=== PATIENT | female | born 1955 | race Caucasian/White ===

== ENCOUNTER 2024-06-28 12:55 | Emergency (ER) | payer OTHER ==
[~2024-06-28] VITALS: Ht 167.6 cm; Wt 81.7 kg
[2024-06-28 14:20] LABS: BASOPHILS ABSOLUTE AUTO 0.06 K/mm3 (0.00-0.23); BASOPHILS PERCENT AUTO 1 % (0-2); EOSINOPHILS ABSOLUTE AUTO 0.06 K/mm3 (0.00-0.68); EOSINOPHILS PERCENT AUTO 1 % (0-6); Hematocrit 31.3 % (33.0-51.0); Hemoglobin 9.2 g/dL (11.5-16.0); IMMATURE GRAN ABSOLUTE AUTO 0.01 K/mm3 (0.00-0.10); IMMATURE GRAN PERCENT AUTO 0 % (0-1); LYMPHOCYTES ABSOLUTE AUTO 0.69 K/mm3 (0.84-5.20); LYMPHOCYTES PERCENT AUTO 9 % (21-46); MONOCYTES ABSOLUTE AUTO 0.43 K/mm3 (0.16-1.47); MONOCYTES PERCENT AUTO 6 % (4-13); Mean Corpuscular HGB 23.7 pg (26.0-34.0); Mean Corpuscular HGB Conc 29.4 g/dL (31.5-36.5); Mean Corpuscular Volume 81 fL (80-100); Mean Platelet Volume 11.6 fL (9.1-12.4); NEUTROPHILS ABSOLUTE AUTO 6.23 K/mm3 (1.96-9.15); NEUTROPHILS PERCENT AUTO 83 % (41-73); Platelet Count 164 K/mm3 (150-400); RDW Coefficient Variation 15.6 % (11.7-14.2); RDW Standard Deviation 45.4 fL (35.1-46.3); Red Blood Cell Count 3.89 M/mm3 (3.80-5.20); White Blood Cell Count 7.48 K/mm3 (4.00-11.30)
[2024-06-28 14:22] LABS: Albumin, Blood 3.1 g/dL (3.4-5.0); Albumin/Globulin Ratio 0.9 (0.8-1.8); Bilirubin, Total 0.6 mg/dL (0.1-1.0); Bun/Creatinine Ratio 19.4 (12.0-20.0); Calcium, Blood 9.3 mg/dL (8.5-10.1); Creatinine, Blood 1.34 mg/dL (0.40-1.00); Globulin, Blood 3.3 g/dL (2.2-4.0); Potassium, Blood 3.8 mmol/L (3.5-5.5); Total Protein, Blood 6.4 g/dL (6.4-8.2)
[2024-06-28] MEDS ORDERED: OxyCODONE HCL 5 MG TAB PO ONE (16:10)
[2024-06-28] MEDS ORDERED: Ondansetron 4 MG SoluTab SL ONE (16:35)
[2024-06-28] MEDS ORDERED: OXYC5 PO (16:36)
[2024-06-28] MEDS ORDERED: ONDA4ODT MM (16:36)
== END 2024-06-28 17:02 | disposition home or self-care (01) ==
LOC: ER 12:55
PROVIDERS: Physician Assistant
DX: K80.70 Calculus of gallbladder and bile duct without cholecystitis without obstruction (principal); J44.89 Other specified chronic obstructive pulmonary disease; K21.9 Gastro-esophageal reflux disease without esophagitis; E78.5 Hyperlipidemia, unspecified; Z87.891 Personal history of nicotine dependence; Z88.0 Allergy status to penicillin; Z88.5 Allergy status to narcotic agent; Z88.1 Allergy status to other antibiotic agents; Z88.8 Allergy status to other drugs, medicaments and biological substances
CPT/HCPCS: 76705; 80053; 83690; 85025; A9270

== ENCOUNTER 2024-06-30 02:25 | Inpatient (IN) | payer MEDICARE, OTHER ==
[~2024-06-30] VITALS: Ht 167.6 cm; Wt 81.2 kg
[~2024-06-30 02:25] MED LIST: ONDA4ODT MM; OXYC5 PO
[2024-06-30] MEDS ORDERED: Albuterol 2.5 MG/3 ML VIAL INH SCH ×2 (02:35→05:25)
[2024-06-30] MEDS ORDERED: MethylPREDNISolone Sod Succ 125 MG Vial IV ONE (02:35)
[2024-06-30] MEDS ORDERED: Metoprolol Tartrate 1 MG/ML 5 ML VIAL IV ONE (02:40)
[2024-06-30 02:44] LABS: Bicarbonate Venous 31.6 mmol/L (24.0-30.0); PCO2 Venous 55.7 mmHg (38-42); pH Blood Venous 7.39 (7.34-7.37)
[2024-06-30 02:47] LABS: BASOPHILS ABSOLUTE AUTO 0.07 K/mm3 (0.00-0.23); BASOPHILS PERCENT AUTO 1 % (0-2); EOSINOPHILS PERCENT AUTO 0 % (0-6); Hemoglobin 9.5 g/dL (11.5-16.0); IMMATURE GRAN ABSOLUTE AUTO 0.09 K/mm3 (0.00-0.10); IMMATURE GRAN PERCENT AUTO 1 % (0-1); LYMPHOCYTES ABSOLUTE AUTO 0.43 K/mm3 (0.84-5.20); LYMPHOCYTES PERCENT AUTO 5 % (21-46); MONOCYTES ABSOLUTE AUTO 0.84 K/mm3 (0.16-1.47); MONOCYTES PERCENT AUTO 9 % (4-13); Mean Corpuscular HGB 23.9 pg (26.0-34.0); Mean Corpuscular HGB Conc 30.6 g/dL (31.5-36.5); Mean Corpuscular Volume 78 fL (80-100); NEUTROPHILS ABSOLUTE AUTO 7.92 K/mm3 (1.96-9.15); NEUTROPHILS PERCENT AUTO 85 % (41-73); NRBC ABSOLUTE 0.02 K/mm3 (0.00-0.02); NRBC Auto 0.2 /100 WBC (0.0-0.2); Platelet Count 156 K/mm3 (150-400); RDW Coefficient Variation 15.9 % (11.7-14.2); RDW Standard Deviation 45.8 fL (35.1-46.3); Red Blood Cell Count 3.97 M/mm3 (3.80-5.20); White Blood Cell Count 9.35 K/mm3 (4.00-11.30)
[2024-06-30 03:08] LABS: Albumin, Blood 3.3 g/dL (3.4-5.0); Albumin/Globulin Ratio 0.9 (0.8-1.8); Bilirubin, Total 0.9 mg/dL (0.1-1.0); Bun/Creatinine Ratio 17.3 (12.0-20.0); Calcium, Blood 8.9 mg/dL (8.5-10.1); Creatinine, Blood 1.5 mg/dL (0.40-1.00); Globulin, Blood 3.6 g/dL (2.2-4.0); Potassium, Blood 4.5 mmol/L (3.5-5.5); Total Protein, Blood 6.9 g/dL (6.4-8.2)
[2024-06-30 03:43] LABS: Influenza B, PCR NEGATIVE (NEGATIVE); Resp Syncytial Virus, PCR NEGATIVE (NEGATIVE); SARS-Cov-2 (COVID-19) PCR, MMC NEGATIVE (NEGATIVE)
[2024-06-30] MEDS ORDERED: Ondansetron 4 MG TAB PO PRN (04:10)
[2024-06-30] MEDS ORDERED: FLU VACC TS2024-25(6MOS UP)/PF 45 MCG/0.5 ML SYRINGE IM ONE (04:10)
[2024-06-30] MEDS ORDERED: IPRAT-ALBUT 0.5-3 ML INH (04:18)
[2024-06-30] MEDS ORDERED: NARCAN4 M1 (04:18)
[2024-06-30] MEDS ORDERED: NITR.4SL SL (04:18)
[2024-06-30] MEDS ORDERED: MELA3 PO (04:19)
[2024-06-30] MEDS ORDERED: MIRALAX17 GM PO (04:19)
[2024-06-30] MEDS ORDERED: CLON.5 PO (04:19)
[2024-06-30] MEDS ORDERED: GUAI200 PO (04:20)
[2024-06-30] MEDS ORDERED: BISA10S PR (04:20)
[2024-06-30] MEDS ORDERED: ACET325 PO (04:21)
[2024-06-30] MEDS ORDERED: ENTRESTO 24 MG1 EACH PO (04:21)
[2024-06-30] MEDS ORDERED: PANT40 PO (04:21)
[2024-06-30] MEDS ORDERED: ALBU90OI INH (04:21)
[2024-06-30] MEDS ORDERED: CARV25 PO (04:22)
[2024-06-30] MEDS ORDERED: TORSE20 PO (04:22)
[2024-06-30] MEDS ORDERED: ROPI.25 PO (04:22)
[2024-06-30] MEDS ORDERED: Chantix1 MG PO (04:22)
[2024-06-30] MEDS ORDERED: METF500 PO (04:23)
[2024-06-30] MEDS ORDERED: Prednisone50 MG PO (04:23)
[2024-06-30] MEDS ORDERED: BUSP10 PO (04:23)
[2024-06-30] MEDS ORDERED: ALPR.25 PO (04:24)
[2024-06-30] MEDS ORDERED: ESCI10 PO (04:24)
[2024-06-30] MEDS ORDERED: LIDO700A20 TOP (04:24)
[2024-06-30] MEDS ORDERED: ASPI81CH PO (04:24)
[2024-06-30] MEDS ORDERED: ATOR40TA PO (04:25)
[2024-06-30] MEDS ORDERED: Oseltamivir Phosphate 75 MG Cap PO SCH (04:25)
[2024-06-30] MEDS ORDERED: NOVOLIN N100 UNIT/2 SQ (04:25)
[2024-06-30 04:49] LABS: BASOPHILS ABSOLUTE AUTO 0.03 K/mm3 (0.00-0.23); BASOPHILS PERCENT AUTO 0 % (0-2); EOSINOPHILS PERCENT AUTO 0 % (0-6); Hematocrit 28.4 % (33.0-51.0); Hemoglobin 8.7 g/dL (11.5-16.0); IMMATURE GRAN ABSOLUTE AUTO 0.05 K/mm3 (0.00-0.10); IMMATURE GRAN PERCENT AUTO 1 % (0-1); LYMPHOCYTES ABSOLUTE AUTO 0.23 K/mm3 (0.84-5.20); LYMPHOCYTES PERCENT AUTO 3 % (21-46); MONOCYTES ABSOLUTE AUTO 0.33 K/mm3 (0.16-1.47); MONOCYTES PERCENT AUTO 4 % (4-13); Mean Corpuscular HGB 23.9 pg (26.0-34.0); Mean Corpuscular HGB Conc 30.6 g/dL (31.5-36.5); Mean Corpuscular Volume 78 fL (80-100); Mean Platelet Volume 11.4 fL (9.1-12.4); NEUTROPHILS ABSOLUTE AUTO 7.94 K/mm3 (1.96-9.15); NEUTROPHILS PERCENT AUTO 93 % (41-73); Platelet Count 146 K/mm3 (150-400); RDW Coefficient Variation 15.9 % (11.7-14.2); RDW Standard Deviation 45.7 fL (35.1-46.3); Red Blood Cell Count 3.64 M/mm3 (3.80-5.20); White Blood Cell Count 8.58 K/mm3 (4.00-11.30)
[2024-06-30] MEDS ORDERED: NS 1,000 ML IV SCH (05:00)
[2024-06-30] MEDS ORDERED: CefTRIAXone Sodium 1,000 MG in NS 100 ML IV SCH (05:13)
[2024-06-30] MEDS ORDERED: Azithromycin 500 MG in NS 250 ML IV ONE (05:15)
[2024-06-30 05:20] LABS: Alanine Aminotransfer (ALT/SGP 30 U/L (12-78); Albumin/Globulin Ratio 0.9 (0.8-1.8); Alk Phos 100 U/L (50-136); Anion Gap 10 mmol/L (3-11); Aspartate Aminotrans (AST/SGOT 21 U/L (12-37); Bilirubin, Total 0.7 mg/dL (0.1-1.0); Blood Urea Nitrogen 26 mg/dL (8-24); Bun/Creatinine Ratio 18.6 (12.0-20.0); CHOL/HDL RATIO 2.2; CO2, Blood 32 mmol/L (21-32); Calcium, Blood 8.1 mg/dL (8.5-10.1); Chloride, Blood 96 mmol/L (98-108); Cholesterol 98 mg/dL (50-200); Globulin, Blood 3.3 g/dL (2.2-4.0); Glomerular Filtration Rate 41 (60-); Glucose, Blood 186 mg/dL (70-99); HDL Cholesterol 45 mg/dL (>39); Low Density Lipoprotein Chol 43 mg/dL (0-110); Phosphorus, Blood 4.3 mg/dL (2.5-4.9); Potassium, Blood 3.9 mmol/L (3.5-5.5); Sodium, Blood 134 mmol/L (136-145); Thyroid Stimulating Hormone 0.661 uIU/mL (0.360-4.800); Total Protein, Blood 6.3 g/dL (6.4-8.2); Triglycerides 50 mg/dL (30-160); Very Low Density Lipoprot Chol 10 mg/dL (6-32)
[2024-06-30] MEDS ORDERED: Ipratropium/Albuterol SulF 2.5-0.5MG/3 ML Amp INH SCH (05:25)
[2024-06-30] MEDS ORDERED: Polyethylene Glycol 3350 17 gm PO PRN (05:30)
[2024-06-30] MEDS ORDERED: Acetaminophen 325 MG TABLET PO PRN (05:45)
[2024-06-30] MEDS ORDERED: OxyCODONE HCL 5 MG TAB PO PRN (05:45)
[2024-06-30] MEDS ORDERED: Naloxone HCl 0.4MG / ML 1ML Vial IM PRN (05:50)
[2024-06-30] MEDS ORDERED: Nitroglycerin 0.4 MG SUBL SL PRN (05:50)
[2024-06-30] MEDS ORDERED: ClonazePAM 0.5 MG Tab PO PRN (05:50)
[2024-06-30] MEDS ORDERED: Bisacodyl 10 MG Supp PR PRN (05:55)
[2024-06-30] MEDS ORDERED: Pantoprazole Sodium 40 MG Tab PO SCH (07:30)
[2024-06-30 07:46] VITALS: BP 107/89
[2024-06-30] MEDS ORDERED: GuaiFENesin 200 MG IR Tab PO SCH (08:00)
[2024-06-30] MEDS ORDERED: Furosemide 10 MG / ML 2ML Vial IV SCH (09:00)
[2024-06-30] MEDS ORDERED: Aspirin 81 MG Chew PO SCH (09:00)
[2024-06-30] MEDS ORDERED: Atorvastatin 40 MG Tab PO SCH (09:00)
[2024-06-30] MEDS ORDERED: Citalopram Hydrobromide 20 MG Tab PO SCH (09:00)
[2024-06-30] MEDS ORDERED: Docusate Sodium 100 MG Cap PO SCH (09:00)
[2024-06-30] MEDS ORDERED: Varenicline Tartrate 1 MG Tablet PO SCH (09:00)
[2024-06-30] MEDS ORDERED: Sennosides 8.6 MG Tab PO SCH (09:00)
[2024-06-30] MEDS ORDERED: rOPINIRole HCl 0.25 MG Tab PO SCH (09:00)
[2024-06-30] MEDS ORDERED: MethylPREDNISolone Sod Succ 125 MG Vial IV SCH (09:00)
[2024-06-30] MEDS ORDERED: Metoprolol Tartrate 25 MG Tab PO SCH (09:00)
[2024-06-30] MEDS ORDERED: BusPIRone HCl 10 MG Tab PO SCH (09:00)
[2024-06-30] MEDS ORDERED: ALPRAZolam 0.25 MG Tab PO SCH (09:00)
[2024-06-30] MEDS ORDERED: MetFORMIN HCl 500 mg PO SCH (09:00)
[2024-06-30] MEDS ORDERED: Sacubitril/Valsartan 24 MG-26 MG Tab PO SCH (09:00)
[2024-06-30] MEDS ORDERED: methylPREDNISolone acetate 80 MG/ML 1MLVIAL IM SCH (09:00)
[2024-06-30] MEDS ORDERED: Insulin Regular 100 UNIT/ML 10ML Vial SC SCH (12:00)
[2024-06-30 12:06] VITALS: BP 111/65
[2024-06-30] MEDS ORDERED: Insulin Human Lispro 100 Units/ML 3ML Syringe SC SCH ×2 (12:40→16:30)
[2024-06-30] MEDS ORDERED: Insulin Glargine-Yfgn 100 Unit/mL 3 ML SYR SC SCH (13:00)
[2024-06-30 16:57] VITALS: BP 114/62
--- NOTE | 2024-06-30 17:21 | NUR ---
SHIFT SUMMARY PT A&Ox4, CALLS AND COMMUNICATES NEEDS APPROPRIATELY. FORGETFUL AT TIMES AND POOR HISTORIAN. BP STABLE, AFIB 90-110's, DENIES CP/PRESSURE. SpO2> 92% 3L VIA NC, DENIES SOB. SBA FOR TRANSFERS, AMBULATES TO BATHROOM WITH FWW. PRN BREATHING TREATMENTS PROVIDED. NO OTHER EVENTS, WILL REPORT TO ONCOMING RN.
[2024-06-30 19:45] VITALS: BP 152/97
[2024-06-30] MEDS ORDERED: Oseltamvir Phosphate 30 MG Cap PO SCH (21:00)
[2024-07-01] VITALS (7 sets, daily range): BP systolic 123–154; BP diastolic 64–99
--- NOTE | 2024-07-01 05:29 | NUR ---
SHIFT SUMMARY PT A&O X4, FORGETFUL/WITHDRAWN AT TIMES, COOPERATIVE TO CARE. HR IN THE 100'S, AFIB. DENIES CP/PRESSURE, NUMB/TINGLING, SBP STABLE. O2 >92% ON 1-2L VIA NC, PT ON 1-2L AT BASELINE. PT HAS SOME SOB WITH EXERTION AND REQUIRES 3-4L WHILE WALKING TO THE BATHROOM. L/S COARSE T/O. SBA TO BATHROOM FOR O2 NEEDS, PT FORGETS TO CALL, BED ALARM ON. PT C/O DRY EYES/IRRITATION AND REQUESTED EYE DROPS, PROVIDER NOTIFIED. ORDERS PLACED. PT RESTING IN BAD AT THIS TIME. SHE DENIES ANY QUESTIONS OR CONCERNS AT THIS TIME. WILL MONITOR PT AND REPORT TO ONCOMING NURSE.
[2024-07-01 07:26] LABS: BASOPHILS PERCENT AUTO 0 % (0-2); EOSINOPHILS PERCENT AUTO 0 % (0-6); Hematocrit 32.6 % (33.0-51.0); Hemoglobin 9.9 g/dL (11.5-16.0); IMMATURE GRAN ABSOLUTE AUTO 0.03 K/mm3 (0.00-0.10); IMMATURE GRAN PERCENT AUTO 0 % (0-1); LYMPHOCYTES ABSOLUTE AUTO 0.51 K/mm3 (0.84-5.20); LYMPHOCYTES PERCENT AUTO 6 % (21-46); MONOCYTES ABSOLUTE AUTO 0.52 K/mm3 (0.16-1.47); MONOCYTES PERCENT AUTO 6 % (4-13); Mean Corpuscular HGB 23.6 pg (26.0-34.0); Mean Corpuscular HGB Conc 30.4 g/dL (31.5-36.5); Mean Corpuscular Volume 78 fL (80-100); Mean Platelet Volume 11.3 fL (9.1-12.4); NEUTROPHILS ABSOLUTE AUTO 7.28 K/mm3 (1.96-9.15); NEUTROPHILS PERCENT AUTO 87 % (41-73); Platelet Count 125 K/mm3 (150-400); RDW Coefficient Variation 15.6 % (11.7-14.2); Red Blood Cell Count 4.19 M/mm3 (3.80-5.20); White Blood Cell Count 8.34 K/mm3 (4.00-11.30)
[2024-07-01 07:48] LABS: Calcium, Blood 8.4 mg/dL (8.5-10.1); Creatinine, Blood 1.25 mg/dL (0.40-1.00); Potassium, Blood 3.6 mmol/L (3.5-5.5)
[2024-07-01] MEDS ORDERED: Peg 400/Hypromellose/Glycerin 15 DROP/ML BTL BOTHEYES SCH (09:00)
[2024-07-01] MEDS ORDERED: Furosemide 10 MG/ML 4ML Vial IV SCH (09:00)
[2024-07-01] MEDS ORDERED: Enoxaparin 40 MG/0.4 ML SYR SC SCH (09:00)
[2024-07-01] MEDS ORDERED: CefTRIAXone Sodium 1,000 MG in NS 100 ML IV SCH (09:00)
[2024-07-01] MEDS ORDERED: Metoprolol Succinate 50 MG TABCR PO SCH (09:00)
--- NOTE | 2024-07-01 09:42 | NUR ---
THIS RN ASSUMED CARE OF PT AT 0700. PT IS ALERT AND ORIENTED X4, CALLS OUT APPROPRIATELY AND FOLLOWS COMMANDS. DR. HILL CAME BY THIS MORNING AND SAW PT BEDSIDE, PT BLOOD SUGAR WAS 180, DR. HILL SAID TO HOLD SCHEDULED 5UNITS OF SQ INSULIN BUT GAVE THE 1 UNIT PER SLIDING SCALE ACHS. PT HEART RATE IN THE 100-110s, A-FIB, BLOOD PRESSURE STABLE AT 133/88, PT DENIES CHEST PAIN. PT DENIES SHORTNESS OF BREATH, ON 3L NC, COURSE/DIMINISHED. NO OTHER INTERVENTIONS AT THIS TIME. PLAN OF CARE CONTINUED.
[2024-07-01] MEDS ORDERED: Insulin Human Lispro 100 Units/ML 3ML Syringe SC SCH (11:30)
[2024-07-01] MEDS ORDERED: Lactobacil 2-S.Thermo-Bifido 1 1 Cap PO SCH (17:05)
--- NOTE | 2024-07-01 17:32 | NUR ---
PT SUMMARY PT HAD A GOOD DAY TODAY, PT WAS NOT EATING MEAL TRAYS, SHE WANTS WHOLE FOOD BUT PT IS ON ASPIRATIONS PRECAUTIONS, DR. HILL HAS BEEN NOTIFIED AND THIS RN DID NOT GIVE THE ADDED 5 UNIT SCHEDULED DOSE OF INSULIN DUE TO PT NOT EATING, WAS OKAY WITH THAT. PT WAS EDUCATED ON IMPORTANCE OF THE MEAL TRAYS AND WHY PT WAS RECEIVING THEM. ECHO WAS COMPLETED AT BEDSIDE TODAY. NO OTHER INTERVENTIONS AT THIS TIME. PLAN OF CARE CONTINUED.
[2024-07-02] VITALS (9 sets, daily range): BP systolic 136–168; BP diastolic 89–128
[2024-07-02 03:49] LABS: BASOPHILS ABSOLUTE AUTO 0.01 K/mm3 (0.00-0.23); BASOPHILS PERCENT AUTO 0 % (0-2); EOSINOPHILS PERCENT AUTO 0 % (0-6); Hematocrit 32.8 % (33.0-51.0); Hemoglobin 9.7 g/dL (11.5-16.0); IMMATURE GRAN ABSOLUTE AUTO 0.03 K/mm3 (0.00-0.10); IMMATURE GRAN PERCENT AUTO 0 % (0-1); LYMPHOCYTES ABSOLUTE AUTO 0.39 K/mm3 (0.84-5.20); LYMPHOCYTES PERCENT AUTO 4 % (21-46); MONOCYTES ABSOLUTE AUTO 0.35 K/mm3 (0.16-1.47); MONOCYTES PERCENT AUTO 4 % (4-13); Mean Corpuscular HGB Conc 29.6 g/dL (31.5-36.5); Mean Corpuscular Volume 81 fL (80-100); Mean Platelet Volume 12.4 fL (9.1-12.4); NEUTROPHILS ABSOLUTE AUTO 8.77 K/mm3 (1.96-9.15); NEUTROPHILS PERCENT AUTO 92 % (41-73); Platelet Count 144 K/mm3 (150-400); RDW Coefficient Variation 15.6 % (11.7-14.2); RDW Standard Deviation 46.3 fL (35.1-46.3); Red Blood Cell Count 4.05 M/mm3 (3.80-5.20); White Blood Cell Count 9.55 K/mm3 (4.00-11.30)
[2024-07-02 04:21] LABS: Albumin, Blood 2.9 g/dL (3.4-5.0); Albumin/Globulin Ratio 0.9 (0.8-1.8); Bilirubin, Total 0.3 mg/dL (0.1-1.0); Bun/Creatinine Ratio 38.6 (12.0-20.0); Calcium, Blood 8.4 mg/dL (8.5-10.1); Creatinine, Blood 0.93 mg/dL (0.40-1.00); Globulin, Blood 3.3 g/dL (2.2-4.0); Potassium, Blood 3.3 mmol/L (3.5-5.5); Total Protein, Blood 6.2 g/dL (6.4-8.2)
[2024-07-02] MEDS ORDERED: Metoprolol Tartrate 1 MG/ML 5 ML VIAL IV ONE (05:15)
[2024-07-02] MEDS ORDERED: Potassium Chloride 20 MEQ TabCR PO ONE (05:20)
[2024-07-02] MEDS ORDERED: Peg 400/Hypromellose/Glycerin 15 DROP/ML BTL BOTHEYES PRN (06:27)
--- NOTE | 2024-07-02 07:08 | NUR ---
SHIFT SUMMARY: PT IS A&OX4, WITHDRAWN AND IRRITABLE. HYPERTENSIVE SYS >150 DYS>90, AFIB 90' S-120'S, HR UP IN THE 140'S WHILE UP TO BR, ON 3L NC, SATS >92%, AFEBRILE. AROUND 0500 PT GOT OOB TO USE THE BR, HR AFIB IN THE 150'S, C/O HEART RACING AND FEELING ANXIOUS. PRN PO 0.5 KLONOPIN ADMINISTERED. BP 160/128, HR AFIB 133. RESIDENT PAPA CALLED, HE CAME TO BEDSIDE. SEE NEW ORDERS. K 3.3, REPLACED WITH PO 40 mEq. DENIES PAIN. REFUSED HER ZYPREXA, STATED SHE TAKES KLONOPIN INSTEAD. ON A PUREED DIET, ASKED THIS RN FOR A HALF OF SANDWICH AND SOME CHEESE. DOESN'T UNDERSTAND WHY SHE CAN'T EAT REGULAR FOOD. THEN REQUESTED ORANGE SHERBERT AND ORANGE JUICE. SBA WITH FWW TO BR. PT IS CONTINENT/INCONTINENT OF URINE. VOIDING LARGE AMOUNTS OF CLEAR, LIGHT YELLOW URINE. PULL-UP IN PLACE AND CHANGED NEEDED. PT HAD A LARGE, SOFT, BROWN BM THIS SHIFT. BED IN LOWEST POSITION, CALL LIGHT WITHIN REACH. BED ALARM SET FOR PT'S SAFETY.
[2024-07-02] MEDS ORDERED: Metoprolol Succinate 50 MG TABCR PO SCH (09:00)
[2024-07-02] MEDS ORDERED: Albuterol 2.5 MG/3 ML VIAL INH PRN (16:20)
--- NOTE | 2024-07-02 17:04 | NUR ---
SHIFT SUMMARY PT RESTING IN BED. PT WILL DESAT DOWN TO MID 70'S WHEN OXYGEN IS NOT IN THE PROPER POSITION. PT WILL OCCASIONALLY PULL OXYGEN OFF OF FACE BUT DOES NOT APPEAR TO EXPERIENCE INCREASED WORK OF BREATHING OR SOB. PT CURRENTLY ON 2-3L NC. AFFECT OF PT REMAINS ANGRY. METOPROLOL HAS BEEN INCREASED TO BID. PT HR HAS BEEN MORE CONTROLLED IN THE AFTERNOON STAYING BELOW 130'S FOR MOST OF THE DAY. WILL CONTINUE WITH THE PLAN OF CARE.
[2024-07-03] VITALS (9 sets, daily range): BP systolic 147–175; BP diastolic 89–102
[2024-07-03] MEDS ORDERED: ALPRAZolam 0.25 MG Tab PO ONE (01:35)
[2024-07-03 05:33] LABS: Hematocrit 33.7 % (33.0-51.0); Hemoglobin 9.9 g/dL (11.5-16.0); Mean Corpuscular HGB 23.5 pg (26.0-34.0); Mean Corpuscular HGB Conc 29.4 g/dL (31.5-36.5); Mean Corpuscular Volume 80 fL (80-100); Mean Platelet Volume 12.5 fL (9.1-12.4); Platelet Count 185 K/mm3 (150-400); RDW Coefficient Variation 15.6 % (11.7-14.2); RDW Standard Deviation 44.9 fL (35.1-46.3); Red Blood Cell Count 4.22 M/mm3 (3.80-5.20); White Blood Cell Count 8.85 K/mm3 (4.00-11.30)
[2024-07-03 06:06] LABS: Bun/Creatinine Ratio 36.7 (12.0-20.0); Calcium, Blood 8.6 mg/dL (8.5-10.1); Creatinine, Blood 0.93 mg/dL (0.40-1.00); Potassium, Blood 3.4 mmol/L (3.5-5.5)
[2024-07-03] MEDS ORDERED: Insulin Human Lispro 100 Units/ML 3ML Syringe SC SCH (08:30)
[2024-07-03] MEDS ORDERED: Furosemide 40 MG Tab PO SCH ×2 (09:00→18:00)
[2024-07-03] MEDS ORDERED: Metoprolol Succinate 50 MG TABCR PO SCH (09:00)
[2024-07-03] MEDS ORDERED: MethylPREDNISolone Sod Succ 125 MG Vial IV SCH (09:00)
--- NOTE | 2024-07-03 09:33 | NUR ---
Transfer note. Pt transferred to Medical floor room 302. Report was given to medical staff. Pt was informed of downgrade and move. Pt reported that she would notify family and did not want staff to call anyone. All belongings were taken with Pt.
[2024-07-03] MEDS ORDERED: Potassium Chloride 10 Meq Tablet SA PO ONE (13:00)
--- NOTE | 2024-07-03 18:05 | NUR ---
SHIFT SUMMARY PT WAS A TRANSFER THIS AM FROM [facility]. PT A&OX4. NO COMPLAINTS OF PAIN SINCE TRANSFERRED TO THE FLOOR. PT UP TO [facility] [place]ANDBY ASSIST WITH SHORTNESS OF BREATH WITH EXERTION. PT ON 2L VIA NC AND O2 SATS HAVE BEEN ABOVE 90%. HEART RATE HAS BEEN IN LOW 100'S THIS SHIFT. PT'S BLOOD SUGARS BETWEEN 150-250, INSULIN GIVEN PER EMAR. NO ACUTE CHANGES THIS SHIFT. CALL LIGHT IN REACH.
[2024-07-03] MEDS ORDERED: Empagliflozin 10 MG TAB PO SCH (19:00)
[2024-07-03] MEDS ORDERED: NOVOLOG FL100 UNIT/3 SC (20:45)
[2024-07-03] MEDS ORDERED: Q-Tussin100 MG/5 M PO (20:58)
[2024-07-03] MEDS ORDERED: ONDA4 PO (21:01)
[2024-07-03] MEDS ORDERED: OXYC5 PO (21:02)
[2024-07-03] MEDS ORDERED: SENN187 PO (21:03)
[2024-07-03] MEDS ORDERED: Voltaren100 GM TOP (21:04)
[2024-07-04] VITALS (7 sets, daily range): BP systolic 121–155; BP diastolic 73–106
--- NOTE | 2024-07-04 05:32 | NUR ---
FINISHER ACCORDION SUMMARY NO ACUTE EVENTS OVERNIGHT. PTS ELEVATED BLOOD PRESSURES WERE RELATED TO GETTING OOB TO USE COMMODE AND THEN HER BLOOD PRESSURE RECHECKS WHILE RESTING IN THE BED HAVE BEEN IN THE 140S-150S. HER HEART RATES HAVE BEEN ELEVATED SINCE ADMISSION IN THE 110S-140S. THEY WERE MOSTLY IN THE 110S OVERNIGHT BUT CLIMB TO THE 120S-130S WITH ANY ACTIVITY. PT DENIES HAVING SYMPTOMS RELATED TO THIS. SHE DOES COMPLAIN OF INTERMITTENT "GALLBLADDER" PAIN THAT IS EITHER 0/10 PAIN OR COMES ON VERY SUDDENLY AT A 7/10 AND RESOLVES EASILY WITH MEDICATION. PT ON 2L NC ALL NIGHT AND ATTEMPTS TO WEAN WERE UNSUCCESSFUL. CONT SP02 MONITORING. IMPULSIVE. CALL LIGHT WITHIN REACH AND BED ALARM IS ON.
[2024-07-04 06:19] LABS: Hematocrit 38.2 % (33.0-51.0); Hemoglobin 11.3 g/dL (11.5-16.0); Mean Corpuscular HGB 23.6 pg (26.0-34.0); Mean Corpuscular HGB Conc 29.6 g/dL (31.5-36.5); Mean Corpuscular Volume 80 fL (80-100); Mean Platelet Volume 11.9 fL (9.1-12.4); Platelet Count 224 K/mm3 (150-400); RDW Coefficient Variation 15.5 % (11.7-14.2); RDW Standard Deviation 44.8 fL (35.1-46.3); Red Blood Cell Count 4.79 M/mm3 (3.80-5.20); White Blood Cell Count 12.13 K/mm3 (4.00-11.30)
[2024-07-04] MEDS ORDERED: Misc. Topical TOP PRN (06:30)
[2024-07-04 06:52] LABS: Creatinine, Blood 1.06 mg/dL (0.40-1.00); Potassium, Blood 3.3 mmol/L (3.5-5.5)
[2024-07-04] MEDS ORDERED: PredniSONE 20 MG Tab PO ONE (07:40)
[2024-07-04] MEDS ORDERED: Potassium Chloride 20 MEQ TabCR PO ONE (08:00)
[2024-07-04] MEDS ORDERED: Torsemide 20 MG TAB PO SCH (09:00)
[2024-07-04] MEDS ORDERED: Spironolactone 12.5 MG TAB PO SCH (09:00)
[2024-07-04] MEDS ORDERED: Empagliflozin 10 MG TAB PO SCH (09:00)
[2024-07-04] MEDS ORDERED: NS 250 ML IV PRN (09:05)
[2024-07-04] MEDS ORDERED: Metoprolol Succinate 50 MG TABCR PO ONE (11:00)
[2024-07-04] MEDS ORDERED: Magnesium Sul 4 GM/Water100 ML 100 ML IV SCH (13:00)
[2024-07-04] MEDS ORDERED: Enoxaparin 40 MG/0.4 ML SYR SC ONE (13:00)
[2024-07-04] MEDS ORDERED: Potassium Chloride 40 MEQ in NS 250 ML IV SCH (17:00)
--- NOTE | 2024-07-04 19:38 | NUR ---
SUMMARY- PT A/O X3-4, USES CALL LIGHT BUT FREQ GETS UP BEFORE STAFF ARRIVE AND MADE IT TO THE BSC WITHOUT INCIDENT. STATES SHE CAN'T HOLD IT. PT HAS STRESS INCONT AND OTHERWISE VOIDS IN THE BSC. PT'S LUNGS DIM T/O, UPPER EXP WHEEZE. ROUTINE NEBS. OCC STRONG COARSE COUGH WITH OCC PRODUCTION, ENC COUGH AND DEEP BREATH. O2 2L NC WITH CONT PULSE OX. CHRONIC PAIN CONROLLED WITH OXYCODONE. PT TOLERATING FOOD AND FLUID. REPORT TO YESICA ASH RN
[2024-07-04] MEDS ORDERED: Apixaban 5 MG Tab PO SCH (21:00)
[2024-07-04] MEDS ORDERED: Metoprolol Succinate 50 MG TABCR PO SCH (21:00)
[2024-07-05 04:23] VITALS: BP 136/86
[2024-07-05] MEDS ORDERED: Pantoprazole Sodium 40 MG Tab PO SCH (06:00)
--- NOTE | 2024-07-05 07:36 | NUR ---
SALES TEACHER SUMMARY NO ACUTE EVENTS OVERNIGHT. PTS HEART RATES HAVE IMPROVED SOME SINCE HER METOPROLOL WAS INCREASED YESTERDAY BUT HER HEART RATES ARE STILL NOT IDEAL, RUNNING MOSTLY IN THE 90S-120S. PT REMAINS ASYMPTOMATIC WITH THIS.
--- NOTE | 2024-07-05 07:38 | NUR ---
ASSUMED CARE OF PATIENT. PATIENT SLEEPING AT FOOT-OF-BED UPON ENTERING ROOM FOR SHIFT REPORT. RT TO BEDSIDE @ SAME TIME TO INITIATE NEBULIZER Tx; BIBASILAR WHEEZES. CONTINUOUS BiOx IN PLACE; MAINTAINING SPO2 >92% ON 2LPM/NC. NO ACUTE NEEDS. BED IN LOWEST POSITION. CALL LIGHT WITHIN REACH.
[2024-07-05 07:43] VITALS: BP 149/93
[2024-07-05] MEDS ORDERED: Apixaban 5 MG Tab PO SCH (08:00)
[2024-07-05] MEDS ORDERED: Enoxaparin 40 MG/0.4 ML SYR SC ONE (09:00)
[2024-07-05 10:37] LABS: Bun/Creatinine Ratio 35.3 (12.0-20.0); Calcium, Blood 8.9 mg/dL (8.5-10.1); Creatinine, Blood 0.99 mg/dL (0.40-1.00); Potassium, Blood 3.1 mmol/L (3.5-5.5)
[2024-07-05 10:42] LABS: Hematocrit 35.3 % (33.0-51.0); Hemoglobin 10.6 g/dL (11.5-16.0); Mean Corpuscular HGB 23.8 pg (26.0-34.0); Mean Corpuscular Volume 79 fL (80-100); Platelet Count 159 K/mm3 (150-400); RDW Coefficient Variation 15.7 % (11.7-14.2); RDW Standard Deviation 45.2 fL (35.1-46.3); Red Blood Cell Count 4.45 M/mm3 (3.80-5.20)
[2024-07-05 11:02] LABS: Mean Platelet Volume 11.1 fL (9.1-12.4)
--- NOTE | 2024-07-05 11:19 | NUR ---
PER DR LEE: NEED TO KNOW WHY PATIENT WAS TAKING PREDNISONE AT FACILITY. CALLED AND SPOKE WITH NURSE, BHARATH, WHO STATES HE DOES NOT SHOW THAT THEY WERE GIVING HER PREDNISONE OR ANY OTHER STEROID. VOICEMAIL INFORMING DR. Carson
[2024-07-05] MEDS ORDERED: JARDIANCE10 MG PO (12:33)
[2024-07-05] MEDS ORDERED: ELIQUIS5 M2 PO (12:33)
[2024-07-05] MEDS ORDERED: BASAGLAR K100 UNIT/1 SC (12:34)
[2024-07-05] MEDS ORDERED: METO50ER PO (12:35)
[2024-07-05] MEDS ORDERED: ARTIFICIAL TEAR15 M6 BOTHEYES (12:35)
[2024-07-05] MEDS ORDERED: SPIR25 PO (12:36)
[2024-07-05] MEDS ORDERED: VISBIOME 112.51 EACH PO (12:36)
[2024-07-05] MEDS ORDERED: Prednisone10 MG PO (12:37)
[2024-07-05] MEDS ORDERED: Potassium Chloride 20 MEQ TabCR PO ONE ×2 (14:00)
--- NOTE | 2024-07-05 15:18 | NUR ---
DISCHARGE SUMMARY: A&Ox4. MOSTLY COOPERATIVE c CARE, THOUGH IRRITABLE. USES CALL LIGHT BUT IS ALSO IMPULSIVE AND IMPATIENT c STAFF. SBA TO BSC. POLYURIA D/T DIURETICS. WHEEZES T/O. MAINTAINING SPO2 >92% ON 2LPM/NC. ROUTINE BREATHING Tx. IVs REMOVED BY SHIVAM EM. LEFT FLOOR WITH DISCHARGE PACKET AND ALL BELONGINGS VIA WHEELCHAIR @ 1510. REPORT TO DAVID NURSE AT [facility].
[2024-07-11 09:43] LABS: Influenza A, PCR POSITIVE (NEGATIVE)
== END 2024-07-05 15:56 | DRG 871 ==
LOC: ER 02:25 → PCU 04:47 → MEDS 04:47 → PCU 04:59 → MEDS 07-03 09:26
PROVIDERS: Emergency Medicine; Registered Nurse; Student in an Organized Health Care Education/Training Program; ADMIT Student in an Organized Health Care Education/Training Program
DX: A41.89 Other specified sepsis (principal); I50.23 Acute on chronic systolic (congestive) heart failure; J96.21 Acute and chronic respiratory failure with hypoxia; J44.1 Chronic obstructive pulmonary disease with (acute) exacerbation; I13.0 Hypertensive heart and chronic kidney disease with heart failure and stage 1 through stage 4 chronic kidney disease, or unspecified chronic kidney disease; N17.9 Acute kidney failure, unspecified; J10.1 Influenza due to other identified influenza virus with other respiratory manifestations; Z99.81 Dependence on supplemental oxygen; R65.20 Severe sepsis without septic shock; N18.30 Chronic kidney disease, stage 3 unspecified; Z28.21 Immunization not carried out because of patient refusal; I48.0 Paroxysmal atrial fibrillation; M54.50 Low back pain, unspecified; K80.80 Other cholelithiasis without obstruction; E86.0 Dehydration; K59.00 Constipation, unspecified; D63.1 Anemia in chronic kidney disease; Z87.891 Personal history of nicotine dependence; Z88.0 Allergy status to penicillin; Z88.2 Allergy status to sulfonamides; Z88.8 Allergy status to other drugs, medicaments and biological substances
CPT/HCPCS: 0241U; 36415; 71045; 80048; 80053; 80061; 82803; 82947; 83036; 83605; 83735; 83880; 84100; 84145; 84443; 84484; 85025; 85027; 92526; 92610; 93005; 93010; 93306; 94640; 94644; 94664; 94762; 96374; 96375; 99285-25; A9270; J0456; J0696; J1650; J1815; J1940; J2919; J7050; J7512

== ENCOUNTER 2024-09-09 18:10 | Inpatient (IN) | payer MEDICARE, OTHER ==
[~2024-09-09] VITALS: Ht 152.4 cm; Wt 88.8 kg
[~2024-09-09 18:10] MED LIST changes: +ACET325 PO; +ALBU90OI INH; +ALPR.25 PO; +ARTIFICIAL TEAR15 M6 BOTHEYES; +ASPI81CH PO; +ATOR40TA PO; +BASAGLAR K100 UNIT/1 SC; +BISA10S PR; +BUSP10 PO; +CARV25 PO; +CLON.5 PO; +Chantix1 MG PO; +ELIQUIS5 M2 PO; +ENTRESTO 24 MG1 EACH PO; +ESCI10 PO; +GUAI200 PO; +IPRAT-ALBUT 0.5-3 ML INH; +JARDIANCE10 MG PO; +LIDO700A20 TOP; +MELA3 PO; +METF500 PO; +METO50ER PO; +MIRALAX17 GM PO; +NARCAN4 M1; +NITR.4SL SL; +NOVOLIN N100 UNIT/2 SQ; +NOVOLOG FL100 UNIT/3 SC; +ONDA4 PO; +PANT40 PO; +Prednisone10 MG PO; +Prednisone50 MG PO; +Q-Tussin100 MG/5 M PO; +ROPI.25 PO; +SENN187 PO; +SPIR25 PO; +TORSE20 PO; +VISBIOME 112.51 EACH PO; +Voltaren100 GM TOP
[2024-09-09] MEDS ORDERED: Ipratropium/Albuterol SulF 2.5-0.5MG/3 ML Amp INH ONE (19:10)
[2024-09-09] MEDS ORDERED: Albuterol 2.5 MG/3 ML VIAL INH SCH ×2 (19:10→22:20)
[2024-09-09] MEDS ORDERED: MethylPREDNISolone Sod Succ 125 MG Vial IV ONE (19:10)
[2024-09-09 19:14] LABS: BASOPHILS ABSOLUTE AUTO 0.07 K/mm3 (0.00-0.23); BASOPHILS PERCENT AUTO 1 % (0-2); EOSINOPHILS ABSOLUTE AUTO 0.02 K/mm3 (0.00-0.68); EOSINOPHILS PERCENT AUTO 0 % (0-6); Hematocrit 31.2 % (33.0-51.0); Hemoglobin 8.8 g/dL (11.5-16.0); IMMATURE GRAN ABSOLUTE AUTO 0.06 K/mm3 (0.00-0.10); IMMATURE GRAN PERCENT AUTO 0 % (0-1); LYMPHOCYTES PERCENT AUTO 5 % (21-46); MONOCYTES ABSOLUTE AUTO 0.87 K/mm3 (0.16-1.47); MONOCYTES PERCENT AUTO 6 % (4-13); Mean Corpuscular HGB 19.9 pg (26.0-34.0); Mean Corpuscular HGB Conc 28.2 g/dL (31.5-36.5); Mean Corpuscular Volume 70 fL (80-100); NEUTROPHILS ABSOLUTE AUTO 12.21 K/mm3 (1.96-9.15); NEUTROPHILS PERCENT AUTO 88 % (41-73); Platelet Count 229 K/mm3 (150-400); RDW Coefficient Variation 16.7 % (11.7-14.2); RDW Standard Deviation 42.2 fL (35.1-46.3); Red Blood Cell Count 4.43 M/mm3 (3.80-5.20); White Blood Cell Count 13.93 K/mm3 (4.00-11.30)
[2024-09-09] MEDS ORDERED: Ketorolac Tromethamine 30mg Vial IV ONE (19:15)
[2024-09-09] MEDS ORDERED: Ondansetron HCl 2 MG / ML 2ML Vial IV ONE (19:15)
[2024-09-09] MEDS ORDERED: NS 1,000 ML IV SCH ×2 (19:15→21:35)
[2024-09-09 19:31] LABS: Albumin, Blood 3.7 g/dL (3.4-5.0); Bilirubin, Total 0.8 mg/dL (0.1-1.0); Bun/Creatinine Ratio 28.6 (12.0-20.0); Creatinine, Blood 1.68 mg/dL (0.40-1.00); Globulin, Blood 3.7 g/dL (2.2-4.0); Potassium, Blood 4.5 mmol/L (3.5-5.5); Total Protein, Blood 7.4 g/dL (6.4-8.2)
[2024-09-09 19:46] LABS: Source, Urine Straight Cath
[2024-09-09 19:50] LABS: Appearance, Urine Clear (Clear); Bilirubin, Urine Neg (Neg); Blood, Urine Neg (Neg); Glucose Qualitative, Urine 2+ (Neg); Ketones, Urine Neg (Neg); Leukocyte Esterase, Urine Neg (Neg); Nitrite, Urine Neg (Neg); Protein, Urine Neg (Neg); Urobilinogen, Urine NORM (Normal)
[2024-09-09 20:03] LABS: Color, Urine Pale Yellow (P-Yellow)
[2024-09-09 20:51] LABS: Influenza A, PCR NEGATIVE (NEGATIVE); Influenza B, PCR NEGATIVE (NEGATIVE); Resp Syncytial Virus, PCR NEGATIVE (NEGATIVE); SARS-Cov-2 (COVID-19) PCR, MMC NEGATIVE (NEGATIVE)
[2024-09-09] MEDS ORDERED: Azithromycin 500 MG in NS 250 ML IV ONE (22:20)
[2024-09-09] MEDS ORDERED: Melatonin 3 MG Tab PO PRN (23:55)
[2024-09-10] MEDS ORDERED: Bisacodyl 10 MG Supp PR PRN (00:45)
[2024-09-10 00:46] LABS: Percent Saturation 3.5 % (15.0-50.0)
[2024-09-10] MEDS ORDERED: ClonazePAM 0.5 MG Tab PO PRN (00:50)
[2024-09-10] MEDS ORDERED: Ipratropium/Albuterol SulF 2.5-0.5MG/3 ML Amp INH SCH (00:50)
[2024-09-10] MEDS ORDERED: Ondansetron HCl 2 MG / ML 2ML Vial IV PRN (00:55)
[2024-09-10] MEDS ORDERED: Nitroglycerin 0.4 MG SUBL SL PRN (00:55)
[2024-09-10] MEDS ORDERED: OxyCODONE HCL 5 MG TAB PO PRN ×2 (00:55→22:00)
[2024-09-10] MEDS ORDERED: Acetaminophen 325 MG TABLET PO PRN (01:00)
[2024-09-10] MEDS ORDERED: Sennosides 8.6 MG Tab PO PRN (01:00)
[2024-09-10] MEDS ORDERED: Melatonin 3 MG Tab PO PRN (01:00)
[2024-09-10] MEDS ORDERED: NS 1,000 ML IV SCH ×4 (01:00→16:50)
[2024-09-10 02:20] VITALS: BP 144/93
[2024-09-10] MEDS ORDERED: Pantoprazole Sodium 40 MG Tab PO SCH (06:00)
[2024-09-10 07:00] LABS: BASOPHILS ABSOLUTE AUTO 0.01 K/mm3 (0.00-0.23); BASOPHILS PERCENT AUTO 0 % (0-2); EOSINOPHILS PERCENT AUTO 0 % (0-6); Hematocrit 26.9 % (33.0-51.0); Hemoglobin 7.4 g/dL (11.5-16.0); Mean Corpuscular HGB 19.7 pg (26.0-34.0); Mean Corpuscular HGB Conc 27.5 g/dL (31.5-36.5); Mean Corpuscular Volume 72 fL (80-100); Platelet Count 190 K/mm3 (150-400); RDW Coefficient Variation 16.9 % (11.7-14.2); RDW Standard Deviation 43.7 fL (35.1-46.3); Red Blood Cell Count 3.76 M/mm3 (3.80-5.20); White Blood Cell Count 8.19 K/mm3 (4.00-11.30)
[2024-09-10 07:12] LABS: IMMATURE GRAN ABSOLUTE AUTO 0.05 K/mm3 (0.00-0.10); IMMATURE GRAN PERCENT AUTO 1 % (0-1); LYMPHOCYTES ABSOLUTE AUTO 0.32 K/mm3 (0.84-5.20); LYMPHOCYTES PERCENT AUTO 4 % (21-46); MONOCYTES ABSOLUTE AUTO 0.04 K/mm3 (0.16-1.47); MONOCYTES PERCENT AUTO 1 % (4-13); Mean Platelet Volume 12.5 fL (9.1-12.4); NEUTROPHILS ABSOLUTE AUTO 7.77 K/mm3 (1.96-9.15); NEUTROPHILS PERCENT AUTO 95 % (41-73)
[2024-09-10 07:14] LABS: Albumin, Blood 3.3 g/dL (3.4-5.0); Bilirubin, Total 0.5 mg/dL (0.1-1.0); Bun/Creatinine Ratio 24.9 (12.0-20.0); Calcium, Blood 8.2 mg/dL (8.5-10.1); Creatinine, Blood 1.81 mg/dL (0.40-1.00); Globulin, Blood 3.4 g/dL (2.2-4.0); Potassium, Blood 4.5 mmol/L (3.5-5.5); Total Protein, Blood 6.7 g/dL (6.4-8.2)
[2024-09-10 07:20] VITALS: BP 117/98
[2024-09-10] MEDS ORDERED: Insulin Human Lispro 100 Units/ML 3ML Syringe SC SCH (07:30)
[2024-09-10] MEDS ORDERED: Spironolactone 12.5 MG TAB PO SCH (09:00)
[2024-09-10] MEDS ORDERED: Aspirin 81 MG Chew PO SCH (09:00)
[2024-09-10] MEDS ORDERED: Metoprolol Succinate 50 MG TABCR PO SCH (09:00)
[2024-09-10] MEDS ORDERED: Docusate Sodium 100 MG Cap PO SCH (09:00)
[2024-09-10] MEDS ORDERED: Atorvastatin 40 MG Tab PO SCH (09:00)
[2024-09-10] MEDS ORDERED: Apixaban 5 MG Tab PO SCH (09:00)
[2024-09-10] MEDS ORDERED: BusPIRone HCl 10 MG Tab PO SCH (09:00)
[2024-09-10] MEDS ORDERED: Citalopram Hydrobromide 10 MG TAB PO SCH (09:00)
[2024-09-10] MEDS ORDERED: Torsemide 20 MG TAB PO SCH (09:00)
[2024-09-10] MEDS ORDERED: Empagliflozin 10 MG TAB PO SCH (09:00)
[2024-09-10] MEDS ORDERED: GuaiFENesin 600 MG TabCR PO SCH (09:00)
[2024-09-10] MEDS ORDERED: MethylPREDNISolone Sod Succ 125 MG Vial IV SCH (09:00)
[2024-09-10] MEDS ORDERED: Sod Ferric Gluc Complx/Sucrose 125 MG in NS 100 ML IV SCH (09:00)
[2024-09-10 09:57] LABS: BASOPHILS ABSOLUTE AUTO 0.01 K/mm3 (0.00-0.23); BASOPHILS PERCENT AUTO 0 % (0-2); EOSINOPHILS PERCENT AUTO 0 % (0-6); Hematocrit 26.7 % (33.0-51.0); Hemoglobin 7.5 g/dL (11.5-16.0); IMMATURE GRAN ABSOLUTE AUTO 0.03 K/mm3 (0.00-0.10); IMMATURE GRAN PERCENT AUTO 0 % (0-1); LYMPHOCYTES ABSOLUTE AUTO 0.37 K/mm3 (0.84-5.20); LYMPHOCYTES PERCENT AUTO 5 % (21-46); MONOCYTES ABSOLUTE AUTO 0.08 K/mm3 (0.16-1.47); MONOCYTES PERCENT AUTO 1 % (4-13); Mean Corpuscular HGB 20.1 pg (26.0-34.0); Mean Corpuscular HGB Conc 28.1 g/dL (31.5-36.5); Mean Corpuscular Volume 71 fL (80-100); NEUTROPHILS ABSOLUTE AUTO 6.68 K/mm3 (1.96-9.15); NEUTROPHILS PERCENT AUTO 93 % (41-73); Platelet Count 193 K/mm3 (150-400); RDW Coefficient Variation 16.8 % (11.7-14.2); RDW Standard Deviation 42.9 fL (35.1-46.3); Red Blood Cell Count 3.74 M/mm3 (3.80-5.20); White Blood Cell Count 7.17 K/mm3 (4.00-11.30)
[2024-09-10 10:07] LABS: Mean Platelet Volume 11.9 fL (9.1-12.4)
[2024-09-10 12:18] LABS: Adenovirus Not Detected (NOT DETECT); Bordetella pertussis Not Detected (NOT DETECT); Chlamydophila pneumoniae Not Detected (NOT DETECT); Coronavirus 229E Not Detected (NOT DETECT); Coronavirus HKU1 Not Detected (NOT DETECT); Coronavirus NL63 Not Detected (NOT DETECT); Coronavirus OC43 Not Detected (NOT DETECT); Human Metapneumovirus Not Detected (NOT DETECT); Human Rhinovirus/Enterovirus Not Detected (NOT DETECT); Influenza A/2009-H1 Not Detected (NOT DETECT); Influenza A/H1 Not Detected (NOT DETECT); Influenza A/H3 Not Detected (NOT DETECT); Influenza B Not Detected (NOT DETECT); Mycoplasma pneumoniae Not Detected (NOT DETECT); Parainfluenza Virus 1 Not Detected (NOT DETECT); Parainfluenza Virus 2 Not Detected (NOT DETECT); Parainfluenza Virus 3 Not Detected (NOT DETECT); Parainfluenza Virus 4 Not Detected (NOT DETECT); Respiratory Syncytial Virus Not Detected (NOT DETECT); SARS-Cov-2 (COVID-19), BioFire Not Detected (NOT DETECT)
[2024-09-10 16:37] VITALS: BP 105/85
--- NOTE | 2024-09-10 18:27 | NUR ---
SHIFT SUMMARY PT EASILY AGITATED, ESPECIALLY WHEN WOKEN UP. PT IND TO BSC IN ROOM. MEDICATED FOR PAIN & ANXIETY TWICE THIS SHIFT. SEE EMAR. TYLENOL ALSO GIVEN ONCE FOR PAIN. PT REFUSING HER INSULIN INJECTIONS FOR LUNCH AND DINNER, STATING THAT HER SUGER WILL COME DOWN ON ITS OWN, PT RELUCTANT TO EDUCATION ON THIS. PT ALSO STATES THAT LAST NIGHT THERE WAS A SEVERED HEAD ON HER TABLE, AND A BIG BEAR MAN WITH BLOOD COMING OUT OF HIS MOUTH. SHE THEN FOLLOW THIS WITH "IM NOT CRAZY, I PROMISE IT WAS REAL". NO HALLUCINATIONS NOTED THIS SHIFT. NO OTHER ACUTE CHANGES IN ASSESSMENT AT THIS TIME. VS REVIEWED. CALL LIGHT IN REACH. DENIES OTHER NEEDS AT THIS TIME.
[2024-09-10 20:18] VITALS: BP 152/79
[2024-09-10] MEDS ORDERED: Artificial Tear Opth Oint 3.5 GM BOTHEYES SCH (21:00)
[2024-09-10] MEDS ORDERED: Azithromycin 500 MG in NS 250 ML IV SCH (21:00)
[2024-09-10] MEDS ORDERED: rOPINIRole HCl 0.25 MG Tab PO SCH (21:00)
[2024-09-11 00:15] VITALS: BP 128/101
[2024-09-11] MEDS ORDERED: Calcium Carbonate 500 MG Tab Chew PO PRN (00:50)
[2024-09-11 05:19] VITALS: BP 115/88
--- NOTE | 2024-09-11 06:34 | NUR ---
Shift Summary No hallucinations this shift. Pt medicated for pain 'all over' per EMAR. Medicated x1 for anxiety. Pt did c/o of chest discomfort which soon resolved on its own. The discomfort came on around 0000 and her HR at that time was 121. Hospitalist said to call again if AM vitals had HR>120, this AM her HR was 106, no c/o of chest discomfort. The hospitalist did order Tums which pt ended up not needing. She is AOx4, SBA to BS for line management.
[2024-09-11 08:37] LABS: BASOPHILS ABSOLUTE AUTO 0.01 K/mm3 (0.00-0.23); BASOPHILS PERCENT AUTO 0 % (0-2); EOSINOPHILS ABSOLUTE AUTO 0.01 K/mm3 (0.00-0.68); EOSINOPHILS PERCENT AUTO 0 % (0-6); Hematocrit 25.7 % (33.0-51.0); Hemoglobin 7.1 g/dL (11.5-16.0); IMMATURE GRAN ABSOLUTE AUTO 0.04 K/mm3 (0.00-0.10); IMMATURE GRAN PERCENT AUTO 0 % (0-1); LYMPHOCYTES ABSOLUTE AUTO 0.94 K/mm3 (0.84-5.20); LYMPHOCYTES PERCENT AUTO 9 % (21-46); MONOCYTES ABSOLUTE AUTO 0.76 K/mm3 (0.16-1.47); MONOCYTES PERCENT AUTO 7 % (4-13); Mean Corpuscular HGB 19.8 pg (26.0-34.0); Mean Corpuscular HGB Conc 27.6 g/dL (31.5-36.5); Mean Corpuscular Volume 72 fL (80-100); NEUTROPHILS ABSOLUTE AUTO 9.06 K/mm3 (1.96-9.15); NEUTROPHILS PERCENT AUTO 84 % (41-73); NRBC ABSOLUTE 0.02 K/mm3 (0.00-0.02); NRBC Auto 0.2 /100 WBC (0.0-0.2); Platelet Count 197 K/mm3 (150-400); RDW Coefficient Variation 16.9 % (11.7-14.2); RDW Standard Deviation 43.5 fL (35.1-46.3); Red Blood Cell Count 3.59 M/mm3 (3.80-5.20); White Blood Cell Count 10.82 K/mm3 (4.00-11.30)
[2024-09-11 08:47] LABS: Albumin, Blood 3.1 g/dL (3.4-5.0); Anion Gap 11 mmol/L (3-11); Blood Urea Nitrogen 48 mg/dL (8-24); Bun/Creatinine Ratio 28.9 (12.0-20.0); CO2, Blood 24 mmol/L (21-32); Calcium, Blood 8.6 mg/dL (8.5-10.1); Chloride, Blood 105 mmol/L (98-108); Creatinine, Blood 1.66 mg/dL (0.40-1.00); Glomerular Filtration Rate 33 (60-); Glucose, Blood 110 mg/dL (70-99); Phosphorus, Blood 4.3 mg/dL (2.5-4.9); Potassium, Blood 4.7 mmol/L (3.5-5.5); Sodium, Blood 135 mmol/L (136-145)
[2024-09-11 08:51] VITALS: BP 127/78
[2024-09-11 15:34] VITALS: BP 125/63
--- NOTE | 2024-09-11 18:38 | NUR ---
SHIFT SUMMARY NO C/O HALLUCINATIONS THIS SHIFT. IV ACCESS REMAINS PATENT AND NS RUNNING @ 75ML/HR. C/O PAIN X 2, OXYCODONE EFFECTIVE. SLEPT MOST OF SHIFT.
[2024-09-11 21:02] VITALS: BP 97/62
--- NOTE | 2024-09-11 23:31 | NUR ---
Reaction to IV Azithromyacin Pt was rcing her 2nd dose of IV Azithromyacin when she soon started c/o pain and itching at the IV site. I stopped the infusion and called the [facility] hospitalist who said to hold the infusion and notify day shift. Pt is still rcving NS @75 as ordered.
[2024-09-12] VITALS (9 sets, daily range): BP systolic 85–147; BP diastolic 60–97
[2024-09-12 05:49] LABS: BASOPHILS ABSOLUTE AUTO 0.06 K/mm3 (0.00-0.23); BASOPHILS PERCENT AUTO 1 % (0-2); EOSINOPHILS ABSOLUTE AUTO 0.14 K/mm3 (0.00-0.68); EOSINOPHILS PERCENT AUTO 1 % (0-6); Hematocrit 25.8 % (33.0-51.0); IMMATURE GRAN PERCENT AUTO 1 % (0-1); LYMPHOCYTES ABSOLUTE AUTO 1.35 K/mm3 (0.84-5.20); LYMPHOCYTES PERCENT AUTO 12 % (21-46); MONOCYTES ABSOLUTE AUTO 0.95 K/mm3 (0.16-1.47); MONOCYTES PERCENT AUTO 8 % (4-13); Mean Corpuscular HGB 19.9 pg (26.0-34.0); Mean Corpuscular HGB Conc 27.1 g/dL (31.5-36.5); Mean Corpuscular Volume 74 fL (80-100); NEUTROPHILS ABSOLUTE AUTO 9.03 K/mm3 (1.96-9.15); NEUTROPHILS PERCENT AUTO 78 % (41-73); NRBC ABSOLUTE 0.08 K/mm3 (0.00-0.02); NRBC Auto 0.7 /100 WBC (0.0-0.2); Platelet Count 207 K/mm3 (150-400); RDW Coefficient Variation 17.2 % (11.7-14.2); RDW Standard Deviation 45.3 fL (35.1-46.3); Red Blood Cell Count 3.51 M/mm3 (3.80-5.20); White Blood Cell Count 11.63 K/mm3 (4.00-11.30)
[2024-09-12 05:52] LABS: Mean Platelet Volume 11.7 fL (9.1-12.4)
[2024-09-12 06:11] LABS: Albumin, Blood 3.1 g/dL (3.4-5.0); Anion Gap 7 mmol/L (3-11); Blood Urea Nitrogen 46 mg/dL (8-24); Bun/Creatinine Ratio 31.1 (12.0-20.0); CO2, Blood 26 mmol/L (21-32); Calcium, Blood 8.4 mg/dL (8.5-10.1); Chloride, Blood 108 mmol/L (98-108); Creatinine, Blood 1.48 mg/dL (0.40-1.00); Glomerular Filtration Rate 38 (60-); Glucose, Blood 116 mg/dL (70-99); Sodium, Blood 137 mmol/L (136-145)
--- NOTE | 2024-09-12 06:24 | NUR ---
Shift Summary Pt had mild reaction to IV azithromyacin, stopped infusion, see previous nursing note. Daily weight is up once again this AM. Pt has coarse lung sounds with a cough, possible fluid OL. Hemoglobin this AM is 7.0, down from 7.1. I called the hospitalist who ordered a follow up H&H in 6 hours, at 1215. Pt awake t/o most of the night, rcving NS @ 75. Medicated per EMAR for back pain. AOx4, cooperative with care, no hallucinations, no outbursts.
[2024-09-12 10:14] LABS: Hematocrit 27.1 % (33.0-51.0); Hemoglobin 7.4 g/dL (11.5-16.0)
[2024-09-12] MEDS ORDERED: NS 500 ML IV SCH (10:25)
[2024-09-12] MEDS ORDERED: FURO20 PO (15:04)
--- NOTE | 2024-09-12 16:30 | NUR ---
DISCHARGE PT AOX4, COOPERATIVE, ABLE TO MAKE NEEDS KNOWN. PT IS IND IN ROOM TO COMMODE FOR VOIDING. ON 2L O2 CONSTANTLY. HGB 7.4 THIS MORNING, TRANSFUSED 1 UNIT PRBC. PT LEFT TO THE MEDICAL CENTER, REPORT GIVEN TO "LONG". DARBY WENT WITH TRANSPORT.
== END 2024-09-12 16:26 | DRG 682 ==
LOC: ER 18:10 → MEDS 18:11 → ER 18:11 → MEDS 09-10 02:17
PROVIDERS: Internal Medicine; Student in an Organized Health Care Education/Training Program; ADMIT Student in an Organized Health Care Education/Training Program
PROC: 30233N1 Transfusion of Nonautologous Red Blood Cells into Peripheral Vein, Percutaneous Approach (ICD-10-PCS; principal; 2024-09-12)
DX: N17.9 Acute kidney failure, unspecified (principal); J96.21 Acute and chronic respiratory failure with hypoxia; J44.1 Chronic obstructive pulmonary disease with (acute) exacerbation; I50.22 Chronic systolic (congestive) heart failure; R65.10 Systemic inflammatory response syndrome (SIRS) of non-infectious origin without acute organ dysfunction; I48.20 Chronic atrial fibrillation, unspecified; I13.0 Hypertensive heart and chronic kidney disease with heart failure and stage 1 through stage 4 chronic kidney disease, or unspecified chronic kidney disease; N18.9 Chronic kidney disease, unspecified; E11.22 Type 2 diabetes mellitus with diabetic chronic kidney disease; T50.2X5A Adverse effect of carbonic-anhydrase inhibitors, benzothiadiazides and other diuretics, initial encounter; D50.0 Iron deficiency anemia secondary to blood loss (chronic); R91.8 Other nonspecific abnormal finding of lung field; K21.9 Gastro-esophageal reflux disease without esophagitis; F25.0 Schizoaffective disorder, bipolar type; F41.9 Anxiety disorder, unspecified; E78.5 Hyperlipidemia, unspecified; E86.1 Hypovolemia; G25.81 Restless legs syndrome; Z88.8 Allergy status to other drugs, medicaments and biological substances; Z88.0 Allergy status to penicillin; Z88.1 Allergy status to other antibiotic agents; Z88.2 Allergy status to sulfonamides; Z86.19 Personal history of other infectious and parasitic diseases; Z79.4 Long term (current) use of insulin; Z79.82 Long term (current) use of aspirin; Z79.84 Long term (current) use of oral hypoglycemic drugs; Z79.01 Long term (current) use of anticoagulants; Z79.52 Long term (current) use of systemic steroids; Z87.891 Personal history of nicotine dependence; Z99.81 Dependence on supplemental oxygen
CPT/HCPCS: 0202U; 0241U; 36415; 36430; 51701; 71045; 71250; 74177; 76770; 80053; 80069; 81003; 82010; 82728; 82947; 83540; 83550; 83735; 83880; 84145; 85014; 85018; 85025; 86850; 86900; 86901; 86923; 87040; 93005; 93010; 94640; 94644; 94645; 94664; 94760; 94762; 96361-59; 96365-59; 96375; 96375-59; 96376; 99285-25; A9270; G0378; J0456; J1885; J2405; J2916; J2919; J7030; J7040; J7050; P9016; P9612; Q9967

== ENCOUNTER 2024-09-15 01:46 | Emergency (ER) | payer MEDICARE, OTHER ==
[~2024-09-15] VITALS: Ht 167.6 cm; Wt 81.7 kg
[~2024-09-15 01:46] MED LIST changes: +FURO20 PO
[2024-09-15 02:27] LABS: Source, Urine Clean Catch
[2024-09-15 02:31] LABS: Bilirubin, Urine Neg (Neg); Blood, Urine Neg (Neg); Glucose Qualitative, Urine 4+ (Neg); Ketones, Urine Neg (Neg); Leukocyte Esterase, Urine Neg (Neg); Nitrite, Urine Neg (Neg); Protein, Urine 2+ (Neg); Urobilinogen, Urine NORM (Normal); pH, Urine 6.5 (5.0-8.0)
[2024-09-15 02:37] LABS: Albumin, Blood 3.2 g/dL (3.4-5.0); Albumin/Globulin Ratio 0.9 (0.8-1.8); Bilirubin, Total 0.8 mg/dL (0.1-1.0); Bun/Creatinine Ratio 24.3 (12.0-20.0); Calcium, Blood 8.9 mg/dL (8.5-10.1); Creatinine, Blood 0.95 mg/dL (0.40-1.00); Globulin, Blood 3.4 g/dL (2.2-4.0); Potassium, Blood 4.3 mmol/L (3.5-5.5); Total Protein, Blood 6.6 g/dL (6.4-8.2)
[2024-09-15 02:40] LABS: Appearance, Urine Clear (Clear); Color, Urine Yellow (P-Yellow)
[2024-09-15 02:41] LABS: Bacteria Few /hpf; Red Blood Cells, Urine 0-2 /hpf (0-2); Squamous Epithelial Cells Mod /hpf (Few); White Blood Cells, Urine 0-2 /hpf (0-5)
[2024-09-15 02:55] LABS: BASOPHILS ABSOLUTE AUTO 0.06 K/mm3 (0.00-0.23); BASOPHILS PERCENT AUTO 1 % (0-2); EOSINOPHILS ABSOLUTE AUTO 0.17 K/mm3 (0.00-0.68); EOSINOPHILS PERCENT AUTO 2 % (0-6); Hematocrit 30.9 % (33.0-51.0); Hemoglobin 8.9 g/dL (11.5-16.0); IMMATURE GRAN ABSOLUTE AUTO 0.16 K/mm3 (0.00-0.10); IMMATURE GRAN PERCENT AUTO 2 % (0-1); LYMPHOCYTES ABSOLUTE AUTO 0.86 K/mm3 (0.84-5.20); LYMPHOCYTES PERCENT AUTO 8 % (21-46); MONOCYTES ABSOLUTE AUTO 0.97 K/mm3 (0.16-1.47); MONOCYTES PERCENT AUTO 9 % (4-13); Mean Corpuscular HGB 21.8 pg (26.0-34.0); Mean Corpuscular HGB Conc 28.8 g/dL (31.5-36.5); Mean Corpuscular Volume 76 fL (80-100); NEUTROPHILS ABSOLUTE AUTO 8.12 K/mm3 (1.96-9.15); NEUTROPHILS PERCENT AUTO 79 % (41-73); NRBC ABSOLUTE 0.04 K/mm3 (0.00-0.02); NRBC Auto 0.4 /100 WBC (0.0-0.2); Platelet Count 198 K/mm3 (150-400); RDW Coefficient Variation 21.3 % (11.7-14.2); RDW Standard Deviation 49.1 fL (35.1-46.3); Red Blood Cell Count 4.09 M/mm3 (3.80-5.20); White Blood Cell Count 10.34 K/mm3 (4.00-11.30)
[2024-09-15] MEDS ORDERED: NS 1,000 ML IV SCH (03:10)
[2024-09-15] MEDS ORDERED: FentaNYL Citrate 50 MCG/ML 2 ML Injection IV PRN (03:15)
[2024-09-15] MEDS ORDERED: Ipratropium/Albuterol SulF 2.5-0.5MG/3 ML Amp INH ONE (09:05)
== END 2024-09-15 09:40 | disposition home or self-care (01) ==
LOC: ER 01:46
PROVIDERS: Emergency Medicine
DX: K80.70 Calculus of gallbladder and bile duct without cholecystitis without obstruction (principal); R11.2 Nausea with vomiting, unspecified; I48.91 Unspecified atrial fibrillation; J44.89 Other specified chronic obstructive pulmonary disease; K21.9 Gastro-esophageal reflux disease without esophagitis; E78.5 Hyperlipidemia, unspecified; I50.9 Heart failure, unspecified; Z87.891 Personal history of nicotine dependence; Z79.82 Long term (current) use of aspirin; Z79.52 Long term (current) use of systemic steroids; Z79.84 Long term (current) use of oral hypoglycemic drugs; Z79.4 Long term (current) use of insulin; Z79.899 Other long term (current) drug therapy; Z88.0 Allergy status to penicillin; Z88.8 Allergy status to other drugs, medicaments and biological substances; Z88.1 Allergy status to other antibiotic agents
CPT/HCPCS: 71046; 76705; 80053; 81001; 83690; 85025; 93005; 93010; 96361; 96374; 96376; 99285-25; J3010; J7030

== ENCOUNTER 2024-12-01 04:16 | Inpatient (IN) | payer MEDICARE, OTHER ==
[~2024-12-01] VITALS: Ht 167.6 cm; Wt 76.3 kg
[~2024-12-01 04:16] MED LIST changes: +ALMACONE SUSPE355 ML PO; +Calcium Carbon500 MG PO; +DIGOX125 MC1 PO; +ENTRESTO 24 MG1 EAC3 PO; +INSULIN AS100 UNIT/8 SQ; +LIDO5TO TOP; +[UNRECOGNIZED DRUG - OTHER] BOTHEYES
[2024-12-01 05:18] LABS: BASOPHILS ABSOLUTE AUTO 0.10 K/mm3 (0.00-0.23); BASOPHILS PERCENT AUTO 2 % (0-2); EOSINOPHILS ABSOLUTE AUTO 0.19 K/mm3 (0.00-0.68); EOSINOPHILS PERCENT AUTO 3 % (0-6); Hematocrit 37.7 % (33.0-51.0); Hemoglobin 10.9 g/dL (11.5-16.0); IMMATURE GRAN ABSOLUTE AUTO 0.04 K/mm3 (0.00-0.10); IMMATURE GRAN PERCENT AUTO 1 % (0-1); LYMPHOCYTES ABSOLUTE AUTO 1.32 K/mm3 (0.84-5.20); LYMPHOCYTES PERCENT AUTO 19 % (21-46); MONOCYTES ABSOLUTE AUTO 0.76 K/mm3 (0.16-1.47); MONOCYTES PERCENT AUTO 11 % (4-13); Mean Corpuscular HGB Conc 28.9 g/dL (31.5-36.5); Mean Corpuscular Volume 79 fL (80-100); NEUTROPHILS ABSOLUTE AUTO 4.45 K/mm3 (1.96-9.15); NEUTROPHILS PERCENT AUTO 65 % (41-73); NRBC ABSOLUTE 0.00 K/mm3 (0.00-0.02); NRBC Auto 0.0 /100 WBC (0.0-0.2); Platelet Count 233 K/mm3 (150-400); RDW Coefficient Variation 21.2 % (11.7-14.2); RDW Standard Deviation 61.1 fL (35.1-46.3)
[2024-12-01 05:42] LABS: U Amphetamine Screen Not Detected; U Barbituate Screen Not Detected; U Benzodiazapine Screen Not Detected; U Buprenorphine Screen Not Detected; U Cannabinoids Screen Not Detected; U Cocaine Screen Not Detected; U Methadone Screen Not Detected; U Methamphetamine Screen Not Detected; U Opiates Screen Not Detected; U Oxycodone Screen DETECTED; U Phencyclidine Screen Not Detected
[2024-12-01 05:53] LABS: Alanine Aminotransfer (ALT/SGP 15 U/L (12-78); Albumin, Blood 3.0 g/dL (3.4-5.0); Albumin/Globulin Ratio 0.8 (0.8-1.8); Anion Gap 9 mmol/L (3-11); Aspartate Aminotrans (AST/SGOT 21 U/L (12-37); Bilirubin, Total 0.5 mg/dL (0.1-1.0); Blood Urea Nitrogen 26 mg/dL (8-24); CO2, Blood 27 mmol/L (21-32); Calcium, Blood 8.6 mg/dL (8.5-10.1); Chloride, Blood 100 mmol/L (98-108); Creatinine, Blood 1.68 mg/dL (0.40-1.00); Ethanol (Alcohol), Blood, Med <3 mg/dL; Globulin, Blood 3.8 g/dL (2.2-4.0); Glucose, Blood 70 mg/dL (70-99); Potassium, Blood 4.1 mmol/L (3.5-5.5); Sodium, Blood 132 mmol/L (136-145); Total Protein, Blood 6.8 g/dL (6.4-8.2)
[2024-12-01 06:12] LABS: Source, Urine Clean Catch
[2024-12-01 06:14] LABS: Bilirubin, Urine Neg (Neg); Glucose Qualitative, Urine 2+ (Neg); Ketones, Urine Neg (Neg); Leukocyte Esterase, Urine Neg (Neg); Protein, Urine 2+ (Neg); Specific Gravity, Urine 1.015 (1.003-1.022); Urobilinogen, Urine NORM (Normal)
[2024-12-01 06:32] LABS: Color, Urine Yellow (P-Yellow)
[2024-12-01 06:36] LABS: Red Blood Cells, Urine 0-2 /hpf (0-2); White Blood Cells, Urine 0-2 /hpf (0-5)
[2024-12-01] MEDS ORDERED: NS 1,000 ML IV SCH (09:00)
[2024-12-01] MEDS ORDERED: Enoxaparin 40 MG/0.4 ML SYR SC SCH (09:00)
[2024-12-01 12:07] VITALS: BP 153/62
[2024-12-01 16:16] VITALS: BP 153/60
[2024-12-01] MEDS ORDERED: Naloxone HCL 4 MG SPRAY (1 UNIT) PRN (16:45)
[2024-12-01] MEDS ORDERED: Ipratropium/Albuterol SulF 2.5-0.5MG/3 ML Amp INH PRN (16:50)
[2024-12-01] MEDS ORDERED: Polyethylene Glycol 3350 17 gm PO PRN (16:55)
[2024-12-01] MEDS ORDERED: Dextran/Hypromellose/Glycerin 15 DROP/ML BTL BOTHEYES PRN (17:10)
[2024-12-01] MEDS ORDERED: Albuterol HFA200 ACT/6.7 GM INH INH PRN (17:15)
--- NOTE | 2024-12-01 19:37 | NUR ---
ASSUMPTION OF CARE AMITTED CLIENT FROM ED FOR ACUTE KIDNEY INJURY. CLIENT HAS IV IN LEFT WRIST/LOWER FOREARM RUNNING NS @ 125 ML/HR. PT EVAL ORDERED AND IS PENDING. CLIENT IS ON ROOM AIR. CLIENTS' PULSE PERIODICALLY DROPPED INTO THE MID TO UPPER 30'S. PROVIDER CONTACTED WITH ORDERS TO D/C TOPROL AND DIGOXIN RECEIVED. PROVIDER MICHELE RE-EVAL IN THE MORNING. CLIENT HAS SLEPT SOUNDLY FOR THE REMAINDER OF THE SHIFT. BED IS IN LOW POSITION AND CALL LIGHT IS WITHIN REACH.
[2024-12-01 19:45] VITALS: BP 151/77
[2024-12-01] MEDS ORDERED: Insulin Human Lispro 100 Units/ML 3ML Syringe SC SCH (21:00)
--- NOTE | 2024-12-01 21:31 | NUR ---
PT'S POC BG WAS 54, PT WAS GIVEN SNACKS AFTER. REPEAT BG WAS 48. NOTIFIED HOSPITALIST. RECIEVED ORDERS.
[2024-12-01] MEDS ORDERED: D5W-1/2NS 1,000 ML IV SCH (21:40)
--- NOTE | 2024-12-01 23:17 | NUR ---
PT'S REPEAT BG 138 AFTER 25ML D50 AMP AND D5 1/2NS STARTED.
[2024-12-02 00:26] VITALS: BP 131/54
[2024-12-02 04:29] VITALS: BP 140/63
[2024-12-02 06:13] LABS: Anion Gap 9 mmol/L (3-11); Blood Urea Nitrogen 22 mg/dL (8-24); CO2, Blood 29 mmol/L (21-32); Calcium, Blood 8.0 mg/dL (8.5-10.1); Chloride, Blood 102 mmol/L (98-108); Creatinine, Blood 1.42 mg/dL (0.40-1.00); Glucose, Blood 132 mg/dL (70-99); Potassium, Blood 3.7 mmol/L (3.5-5.5); Sodium, Blood 136 mmol/L (136-145)
--- NOTE | 2024-12-02 07:22 | NUR ---
SHIFT SUMMARY PT HAS BEEN RESTING IN BED COMFORTABLY OVERNIGHT. SHE HAS BEEN AOX4, CALM AND COOPERATIVE. PT HAS BEEN ON 2LNC, WHICH IS BASELINE FOR HER AT [facility] DUE TO COPD. SHE HAS COMPLAINED OF GENERALIZED PAIN, WHICH HAS BEEN RELIEVED W/ REST AND MEDICATIONS. PT HAS BEEN 1PA PIVOT TO BSC OVERNIGHT. SHE HAS CALLED APPROPRIATELY. PT ON TELE, W/ EPISODE OF SNOW IN 30S, BUT PT WAS ASYMPTOMATIC. SHE ALSO HAD HYPOGLYCEMIC EPISODE (SEE NURSES NOTES). MD WAS NOTIFIED AND FLUIDS WERE CHANGED. OTHERWISE, PT HAD UNEVENTFUL NIGHT.
[2024-12-02 07:43] VITALS: BP 123/54
[2024-12-02 11:26] VITALS: BP 139/62
[2024-12-02 15:18] VITALS: BP 128/109
[2024-12-02 19:34] VITALS: BP 109/48
--- NOTE | 2024-12-02 19:55 | NUR ---
SHIFT SUMMARY CLIENT IS AOX2-3. MEDICATION COMPLIANT. TELE STRIP SHOWS AFIB @ 54. RECEIVED ONE CALL FROM TELE TODAY CONCERNING CLIENTS' PULSE VENTURING DOWN IN TO THE UPPER 30'S BEFORE RETURNING TO BASELINE. IV IN R WRIST IS RUNNING D5/0.5NS AT 125ML/HR. CLIENT SHOWED SIGNS OF IMPULSIVENESS THIS SHIFT. CLIENT WAS FOUND ATTEMPING TO GET OUT OF BED TO USE THE BATHROOM WITHOUT CALLING FOR STAFF ASSISTANCE. BED IS IN LOW POSITION AND ALARM IS ON. CALL LIGHT IS WITHIN REACH.
[2024-12-03 00:20] VITALS: BP 124/63
--- NOTE | 2024-12-03 04:06 | NUR ---
SHIFT SUMMARY PATIENT HAD NO ACUTE CHANGES. AXO X3 AND ONE ASSIST TO BSC. PIV INTACT. D5 1/2 NS INFUSING @ 125mL/HR. TELE MONITOR AFIB 53. ON 2L O2 NC BASELINE. DENIES CHEST PAIN, SOB, AND N/V. VSS/AFEBRILE. SLEPT MOST OF THE SHIFT. CALL LIGHT IN REACH. BED IN LOWEST POSITION. WILL CONTINUE TO MONITOR UNTIL DAY SHIFT NURSE ASSUMES CARE.
[2024-12-03 04:48] VITALS: BP 140/91
[2024-12-03 06:11] LABS: Anion Gap 7.0 mmol/L (3-11); Blood Urea Nitrogen 18.0 mg/dL (8-24); CO2, Blood 27.0 mmol/L (21-32); Calcium, Blood 8.1 mg/dL (8.5-10.1); Chloride, Blood 102.0 mmol/L (98-108); Creatinine, Blood 1.32 mg/dL (0.40-1.00); Glucose, Blood 112.0 mg/dL (70-99); Potassium, Blood 3.4 mmol/L (3.5-5.5); Sodium, Blood 133.0 mmol/L (136-145)
[2024-12-03 07:17] VITALS: BP 154/73
[2024-12-03 16:55] VITALS: BP 149/55
--- NOTE | 2024-12-03 20:07 | NUR ---
SUMMARY- AAOX2-3. PT ON 2L CONTINUOUS VIA NC THIS SHIFT. X1 ASSIST TO BSC/CHAIR. PT'S GENERAL PAIN WELL CONTROLLED WITH EMAR PAIN MEDS.
[2024-12-03 20:19] VITALS: BP 107/53
[2024-12-04 00:07] VITALS: BP 147/57
[2024-12-04 04:02] VITALS: BP 139/69
--- NOTE | 2024-12-04 05:00 | NUR ---
SHIFT SUMMARY: PT AOX2-3. PT IS A SBA TO THE BSC. PT VOIDING THROUGH OUT SHIFT. NO ACUTE CHANGES. TELE PLACED AND PT IS IN AFIB AT 59.
[2024-12-04 05:16] LABS: Anion Gap 5.0 mmol/L (3-11); Blood Urea Nitrogen 14.0 mg/dL (8-24); CO2, Blood 29.0 mmol/L (21-32); Calcium, Blood 8.4 mg/dL (8.5-10.1); Chloride, Blood 107.0 mmol/L (98-108); Creatinine, Blood 1.11 mg/dL (0.40-1.00); Glucose, Blood 81.0 mg/dL (70-99); Potassium, Blood 3.8 mmol/L (3.5-5.5); Sodium, Blood 137.0 mmol/L (136-145)
[2024-12-04 09:17] VITALS: BP 176/79
--- NOTE | 2024-12-04 10:06 | NUR ---
CALLED REPORT TO THU AT 1003. ALL QUESTIONS ANSWERED.
[2024-12-04] MEDS ORDERED: Furosemide40 MG PO (10:46)
[2024-12-04] MEDS ORDERED: KLOR-CON M1010 MEQ PO (10:57)
== END 2024-12-04 11:20 | DRG 682 ==
LOC: ER 04:16 → MEDS 04:17
PROVIDERS: Student in an Organized Health Care Education/Training Program; ADMIT Internal Medicine
DX: N17.9 Acute kidney failure, unspecified (principal); G92.8 Other toxic encephalopathy; I48.20 Chronic atrial fibrillation, unspecified; I50.20 Unspecified systolic (congestive) heart failure; E11.649 Type 2 diabetes mellitus with hypoglycemia without coma; J44.89 Other specified chronic obstructive pulmonary disease; K21.9 Gastro-esophageal reflux disease without esophagitis; E78.5 Hyperlipidemia, unspecified; E11.22 Type 2 diabetes mellitus with diabetic chronic kidney disease; N18.9 Chronic kidney disease, unspecified; G25.81 Restless legs syndrome; F25.9 Schizoaffective disorder, unspecified; R00.1 Bradycardia, unspecified; Z86.19 Personal history of other infectious and parasitic diseases; Z79.891 Long term (current) use of opiate analgesic; Z87.891 Personal history of nicotine dependence; Z88.0 Allergy status to penicillin; Z88.2 Allergy status to sulfonamides; Z88.8 Allergy status to other drugs, medicaments and biological substances; Z79.4 Long term (current) use of insulin; Z79.01 Long term (current) use of anticoagulants; Z79.82 Long term (current) use of aspirin; Z79.84 Long term (current) use of oral hypoglycemic drugs; Z79.899 Other long term (current) drug therapy
CPT/HCPCS: 36415; 51701; 70450; 71045; 80048; 80053; 80162; 80320; 81001; 82947; 85025; 93005; 93010; 94640; 94664; 94760; 96361; 96372; 96374; 97161; 97530; 99285-25; A9270; G0378; J1650; J7030; J7042

== ENCOUNTER 2025-02-22 16:55 | Emergency (ER) | payer MEDICARE, OTHER ==
[~2025-02-22] VITALS: Ht 165.1 cm; Wt 71.2 kg
[~2025-02-22 16:55] MED LIST changes: +Furosemide40 MG PO; +KLOR-CON M1010 MEQ PO
[2025-02-22] MEDS ORDERED: Diltiazem HCl 5 MG / ML 5ML Vial IV ONE ×2 (17:25→18:25)
[2025-02-22 17:39] LABS: BASOPHILS ABSOLUTE AUTO 0.06 K/mm3 (0.00-0.23); BASOPHILS PERCENT AUTO 1 % (0-2); EOSINOPHILS ABSOLUTE AUTO 0.18 K/mm3 (0.00-0.68); EOSINOPHILS PERCENT AUTO 2 % (0-6); Hematocrit 34.1 % (33.0-51.0); Hemoglobin 10.2 g/dL (11.5-16.0); IMMATURE GRAN ABSOLUTE AUTO 0.02 K/mm3 (0.00-0.10); IMMATURE GRAN PERCENT AUTO 0 % (0-1); LYMPHOCYTES ABSOLUTE AUTO 1.30 K/mm3 (0.84-5.20); LYMPHOCYTES PERCENT AUTO 17 % (21-46); MONOCYTES ABSOLUTE AUTO 0.52 K/mm3 (0.16-1.47); MONOCYTES PERCENT AUTO 7 % (4-13); Mean Corpuscular HGB Conc 29.9 g/dL (31.5-36.5); Mean Corpuscular Volume 78 fL (80-100); NEUTROPHILS ABSOLUTE AUTO 5.67 K/mm3 (1.96-9.15); NEUTROPHILS PERCENT AUTO 73 % (41-73); NRBC ABSOLUTE 0.00 K/mm3 (0.00-0.02); NRBC Auto 0.0 /100 WBC (0.0-0.2); Platelet Count 174 K/mm3 (150-400); RDW Coefficient Variation 17.4 % (11.7-14.2); RDW Standard Deviation 48.5 fL (35.1-46.3)
[2025-02-22] MEDS ORDERED: ONDA4ODT (17:48)
[2025-02-22] MEDS ORDERED: AZIT250 PO (17:49)
[2025-02-22 17:58] LABS: Alanine Aminotransfer (ALT/SGP 15.0 U/L (12-78); Albumin, Blood 3.4 g/dL (3.4-5.0); Albumin/Globulin Ratio 0.9 (0.8-1.8); Anion Gap 11.0 mmol/L (3-11); Aspartate Aminotrans (AST/SGOT 14.0 U/L (12-37); Bilirubin, Total 0.5 mg/dL (0.1-1.0); Blood Urea Nitrogen 27.0 mg/dL (8-24); CO2, Blood 21.0 mmol/L (21-32); Calcium, Blood 9.4 mg/dL (8.5-10.1); Chloride, Blood 110.0 mmol/L (98-108); Creatinine, Blood 1.29 mg/dL (0.40-1.00); Globulin, Blood 3.6 g/dL (2.2-4.0); Glucose, Blood 92.0 mg/dL (70-99); Potassium, Blood 5.0 mmol/L (3.5-5.5); Sodium, Blood 137.0 mmol/L (136-145); Total Protein, Blood 7.0 g/dL (6.4-8.2)
[2025-02-22 18:58] LABS: Influenza A, PCR NEGATIVE (NEGATIVE); Influenza B, PCR NEGATIVE (NEGATIVE); Resp Syncytial Virus, PCR NEGATIVE (NEGATIVE); SARS-Cov-2 (COVID-19) PCR, MMC NEGATIVE (NEGATIVE)
[2025-02-22] MEDS ORDERED: Ipratropium/Albuterol SulF 2.5-0.5MG/3 ML Amp INH ONE (19:30)
== END 2025-02-22 20:40 | disposition home or self-care (01) ==
LOC: ER 16:55
PROVIDERS: Emergency Medicine
DX: I48.91 Unspecified atrial fibrillation (principal); Z88.0 Allergy status to penicillin; Z88.2 Allergy status to sulfonamides; Z88.5 Allergy status to narcotic agent; Z88.1 Allergy status to other antibiotic agents; Z79.899 Other long term (current) drug therapy; Z79.4 Long term (current) use of insulin; Z79.01 Long term (current) use of anticoagulants; J44.9 Chronic obstructive pulmonary disease, unspecified; K21.9 Gastro-esophageal reflux disease without esophagitis; E78.5 Hyperlipidemia, unspecified; I50.9 Heart failure, unspecified; Z87.891 Personal history of nicotine dependence
CPT/HCPCS: 71045; 80053; 83880; 84484; 85025; 87637; 93005; 93010; 96374; 96375; 99284-25; A9270

== ENCOUNTER 2025-02-23 13:49 | Inpatient (IN) | payer MEDICARE, OTHER ==
[~2025-02-23] VITALS: Ht 167.6 cm; Wt 74.0 kg
[~2025-02-23 13:49] MED LIST changes: +AZIT250 PO; +ONDA4ODT PO
[2025-02-23] MEDS ORDERED: Diltiazem HCl 5 MG / ML 5ML Vial IV ONE (14:00)
[2025-02-23] MEDS ORDERED: Ipratropium Bromide INH 0.02% 0.5 mg/2.5ML Vial INH ONE (14:00)
[2025-02-23] MEDS ORDERED: Magnesium Sulf 2 GM/Water 50ML 50 ML IV ONE (14:00)
[2025-02-23 14:45] LABS: BASOPHILS ABSOLUTE AUTO 0.05 K/mm3 (0.00-0.23); BASOPHILS PERCENT AUTO 1 % (0-2); EOSINOPHILS ABSOLUTE AUTO 0.09 K/mm3 (0.00-0.68); EOSINOPHILS PERCENT AUTO 1 % (0-6); Hematocrit 33.5 % (33.0-51.0); Hemoglobin 9.9 g/dL (11.5-16.0); IMMATURE GRAN ABSOLUTE AUTO 0.05 K/mm3 (0.00-0.10); IMMATURE GRAN PERCENT AUTO 1 % (0-1); LYMPHOCYTES ABSOLUTE AUTO 0.71 K/mm3 (0.84-5.20); LYMPHOCYTES PERCENT AUTO 8 % (21-46); MONOCYTES ABSOLUTE AUTO 0.43 K/mm3 (0.16-1.47); MONOCYTES PERCENT AUTO 5 % (4-13); Mean Corpuscular HGB Conc 29.6 g/dL (31.5-36.5); Mean Corpuscular Volume 77 fL (80-100); NEUTROPHILS ABSOLUTE AUTO 7.91 K/mm3 (1.96-9.15); NEUTROPHILS PERCENT AUTO 86 % (41-73); NRBC ABSOLUTE 0.00 K/mm3 (0.00-0.02); NRBC Auto 0.0 /100 WBC (0.0-0.2); Platelet Count 176 K/mm3 (150-400); RDW Coefficient Variation 17.3 % (11.7-14.2); RDW Standard Deviation 48.5 fL (35.1-46.3)
[2025-02-23 14:58] LABS: Anion Gap 11.0 mmol/L (3-11); Blood Urea Nitrogen 27.0 mg/dL (8-24); CO2, Blood 21.0 mmol/L (21-32); Calcium, Blood 9.0 mg/dL (8.5-10.1); Chloride, Blood 110.0 mmol/L (98-108); Creatinine, Blood 1.07 mg/dL (0.40-1.00); Glucose, Blood 180.0 mg/dL (70-99); Potassium, Blood 5.0 mmol/L (3.5-5.5); Sodium, Blood 137.0 mmol/L (136-145)
[2025-02-23] MEDS ORDERED: Morphine Sulfate 4 MG/1 ML Injection IV ONE (15:00)
[2025-02-23 15:08] LABS: pH Blood Venous 7.28 (7.34-7.37)
[2025-02-23] MEDS ORDERED: Amiodarone HCl 450 MG in NS 250 ML IV SCH (15:50)
[2025-02-23] MEDS ORDERED: Metoprolol Tartrate 1 MG/ML 5 ML VIAL IV ONE (16:00)
[2025-02-23] MEDS ORDERED: Albuterol 2.5 MG/3 ML VIAL INH PRN (17:20)
[2025-02-23] MEDS ORDERED: Ipratropium/Albuterol SulF 2.5-0.5MG/3 ML Amp INH SCH (17:30)
[2025-02-23] MEDS ORDERED: FLU VACC TS2025(65UP)/MF59C/PF 45 MCG/0.5 ML SYRINGE IM SCH (17:30)
[2025-02-23] MEDS ORDERED: Metoprolol Tartrate 1 MG/ML 5 ML VIAL IV PRN (17:30)
[2025-02-23] MEDS ORDERED: HYDROcodone 5-APAP 325 TAB PO PRN (17:30)
[2025-02-23] MEDS ORDERED: Ondansetron HCl 2 MG / ML 2ML Vial IV PRN (17:30)
[2025-02-23 17:51] LABS: Source, Urine Clean Catch
[2025-02-23 17:54] LABS: Ferritin, Serum 18.0 ng/mL (8-252); Total Iron Binding Capacity 408.0 ug/dL (250-450)
[2025-02-23 17:59] LABS: Bilirubin, Urine Neg (Neg); Glucose Qualitative, Urine 3+ (Neg); Ketones, Urine Neg (Neg); Leukocyte Esterase, Urine Neg (Neg); Protein, Urine 2+ (Neg); Specific Gravity, Urine 1.015 (1.003-1.022); Urobilinogen, Urine NORM (Normal)
[2025-02-23 18:12] LABS: Color, Urine Pale Yellow (P-Yellow)
[2025-02-23 18:13] LABS: Red Blood Cells, Urine 0-2 /hpf (0-2); U Amphetamine Screen Not Detected; U Barbiturate Screen Not Detected; U Benzodiazapine Screen Not Detected; U Cocaine Screen Not Detected; U Methadone Screen Not Detected; U Methamphetamine Screen Not Detected; U Opiates Screen DETECTED; U Oxycodone Screen DETECTED; White Blood Cells, Urine 0-2 /hpf (0-5)
[2025-02-23 18:14] LABS: U Buprenorphine Screen Not Detected; U Cannabinoids Screen Not Detected; U Phencyclidine Screen Not Detected
[2025-02-23 18:32] LABS: pH Blood Venous 7.34 (7.34-7.37)
[2025-02-23] MEDS ORDERED: Insulin Human Lispro 100 Units/ML 3ML Syringe SC SCH (21:00)
[2025-02-23] MEDS ORDERED: Lactobacil 2-S.Thermo-Bifido 1 1 Cap PO SCH (21:00)
[2025-02-23 21:08] VITALS: BP 104/92
[2025-02-24 04:00] VITALS: BP 111/66
[2025-02-24 04:12] LABS: pH Blood Venous 7.42 (7.34-7.37)
[2025-02-24 04:19] LABS: Hematocrit 33.1 % (33.0-51.0); Hemoglobin 9.9 g/dL (11.5-16.0); Mean Corpuscular HGB Conc 29.9 g/dL (31.5-36.5); Mean Corpuscular Volume 77 fL (80-100); NRBC ABSOLUTE 0.00 K/mm3 (0.00-0.02); NRBC Auto 0.0 /100 WBC (0.0-0.2); Platelet Count 165 K/mm3 (150-400); RDW Coefficient Variation 17.5 % (11.7-14.2); RDW Standard Deviation 48.0 fL (35.1-46.3)
[2025-02-24 04:38] LABS: Anion Gap 9.0 mmol/L (3-11); Blood Urea Nitrogen 31.0 mg/dL (8-24); CO2, Blood 24.0 mmol/L (21-32); Calcium, Blood 9.0 mg/dL (8.5-10.1); Chloride, Blood 107.0 mmol/L (98-108); Creatinine, Blood 1.05 mg/dL (0.40-1.00); Glucose, Blood 204.0 mg/dL (70-99); Potassium, Blood 5.1 mmol/L (3.5-5.5); Sodium, Blood 135.0 mmol/L (136-145)
--- NOTE | 2025-02-24 06:32 | NUR ---
SHIFT NOTE PATIENT ADMITTED TO PCU VIA ER OVERNIGHT FOR NEW ONSET AFIB WELL 2X PREVIOUS FALLS IN LAST 48 HOURS. PATIENT SUSTAINED SIGNIFICANT BRUISING TO BACK AND BUTTOCKS, REPORTS DID HIT HEAD AND DOES NOT REMEMBER LOC. PICTURES IN CHART. PT ARRIVES ON 4 L O2, REPORTS BASELINE 1-2 L AT HOME PRN. EVERYDAY SMOKER. PATIENT PROVIDED WITH NICOTINE PATIENT TO TOLLERATE NO SMOKING IN HOSPITAL. PATIENT REPORTS SIGNIFICANT LEG PAIN AND RESTLESS LEGS THAT IS RELIEVED WITH MEDS AND WALKING WITH WALKING. PATIENT AGREED TO STAY IN BED AND TO CALL WHEN SHE WANTS TO GET UP, THAT THERE SHOULD ALWAYS BE SOMEONE IN THE ROOM WITH HER TO WALK AROUND. PATIENT DID A FEW STEPS FOR THIS RN, UNDERSTOOD THAT AMBULATION WAS LIMITED DT MONITOR CORDS AND OXYGEN TUBING. PT SLEPT WELL, THOUGH DID NOT TOLLERATE BIPAP, STATING IT WAS DRYING HER OUT. RT CALLED TO ADD HUMIDITY TO SYSTEM. VSS THOUGHT HR TACHY TO LOW 100S.
[2025-02-24 08:56] VITALS: BP 143/88
[2025-02-24 12:23] VITALS: BP 130/73
[2025-02-24] MEDS ORDERED: Dextromethorphan Polistirix 30 MG/5 ML 5ML Oral Syringe PO PRN (13:45)
[2025-02-24 16:09] VITALS: BP 137/92
--- NOTE | 2025-02-24 17:23 | NUR ---
PT IS A&Ox4 AND ABLE TO MAKE NEEDS KNOWN. SHE IS ON 1LNC W/O2 SATS > 92%. SHE IS A SBA W/FWW FOR AMBULATION. SimGymCK IN PLACE FOR ACCURATE I&O'S. REPORT CALLED TO JUAN C @ 1705 AND PT TAKEN UP TO RM 301 VIA WC @ 1720 W/ALL PERSONAL BELONGINGS AND DINNER TRAY.
[2025-02-24 19:13] VITALS: BP 127/69
[2025-02-24 22:34] VITALS: BP 137/87
[2025-02-25] VITALS (9 sets, daily range): BP systolic 114–151; BP diastolic 71–102
[2025-02-25] MEDS ORDERED: Diltiazem HCl 5 MG / ML 5ML Vial IV ONE (04:00)
[2025-02-25 04:47] LABS: Hematocrit 35.0 % (33.0-51.0); Hemoglobin 10.4 g/dL (11.5-16.0); Mean Corpuscular HGB Conc 29.7 g/dL (31.5-36.5); Mean Corpuscular Volume 78 fL (80-100); NRBC ABSOLUTE 0.00 K/mm3 (0.00-0.02); NRBC Auto 0.0 /100 WBC (0.0-0.2); Platelet Count 190 K/mm3 (150-400); RDW Coefficient Variation 17.9 % (11.7-14.2); RDW Standard Deviation 49.2 fL (35.1-46.3)
[2025-02-25 05:04] LABS: Albumin, Blood 3.4 g/dL (3.4-5.0); Anion Gap 9 mmol/L (3-11); Blood Urea Nitrogen 42 mg/dL (8-24); CO2, Blood 24 mmol/L (21-32); Calcium, Blood 9.0 mg/dL (8.5-10.1); Chloride, Blood 107 mmol/L (98-108); Creatinine, Blood 1.25 mg/dL (0.40-1.00); Glucose, Blood 108 mg/dL (70-99); Magnesium, Blood 2.3 mg/dL (1.6-2.4); Phosphorus, Blood 3.7 mg/dL (2.5-4.9); Potassium, Blood 4.0 mmol/L (3.5-5.5); Sodium, Blood 136 mmol/L (136-145)
--- NOTE | 2025-02-25 06:40 | NUR ---
SHIFT SUMMARY CONTINUES TO HAVE AFIB WITH RATE >110 BPM HIGH 150S THIS EVENING. GIVEN METOPROLOL 5 MG/ML X3 THIS EVENING, AND 10 MG DILTIAZE IVP. HARSH COUGH WITH SCANT WHITE SPUTUM. WBC UPTRENDING. PT SATURATING >92% ON 1L NC, BASELINE USE IS 2L NC. DECLINED USE OF BIPAP. PAIN WELL CONTROLLED WITH SWITCH TO HOME OXY 10 MG Q6H PRN. DID CALL PROVIDER AND REQUEST MAALOX PER PT REQUEST FOR HEART- BURN SENSATION IN L CHEST. CURRENTY RESOLVED. PATENT IV IN RAC. TELE: AFIB, RATE IN 110S.
[2025-02-25] MEDS ORDERED: Iron Dextran 50 MG / ML 2ML Vial IV ONE (11:00)
[2025-02-25] MEDS ORDERED: Iron Dextran 975 MG in NS 250 ML IV ONE (12:00)
[2025-02-25 12:56] LABS: Source, Urine Clean Catch
[2025-02-25 13:09] LABS: Bilirubin, Urine Neg (Neg); Glucose Qualitative, Urine 2+ (Neg); Ketones, Urine Neg (Neg); Leukocyte Esterase, Urine Neg (Neg); Protein, Urine Neg (Neg); Specific Gravity, Urine 1.015 (1.003-1.022); Urobilinogen, Urine NORM (Normal)
[2025-02-25 13:20] LABS: Color, Urine Pale Yellow (P-Yellow)
--- NOTE | 2025-02-25 18:26 | NUR ---
SHIFT SUMMARY PT IS A/OX4. SBA TO BSC. NO ACUTE EVENTS THROUGHOUT THIS SHIFT. PER DIRECT SUPPORT WORKER, HR RANGING FROM 90-120'S. ON 2L NC, SATS >92% ON CONT PULSE OX. PT REPORTED SOB THIS AFTERNOON AFTER EATING, IMPROVED WITH PRN BREATHING TREATMENTS. OXYCODONE GIVEN FOR BACK AND NECK PAIN PER JUL X1 THIS SHIFT. PT IS PLEASANT AND COOPERATIVE WITH CARE AND CALLS APPROPRIATELY.
[2025-02-26] VITALS (9 sets, daily range): BP systolic 110–160; BP diastolic 90–122
[2025-02-26] MEDS ORDERED: Diltiazem HCl 5 MG / ML 5ML Vial IV ONE (02:00)
--- NOTE | 2025-02-26 04:59 | NUR ---
SHIFT SUMMARY REMAINS ON 2L NC THIS EVENING. ATTEMPTED BIPAP, BUT DID NOT TOLERATE DUE TO DRY MOUTH AND NOSE. PT AWARE HUMIDITY CAN BE INCREASED. PROVIDER CALLED, INCREASED NICODERM PATCH DOSE, AND ADDITIONAL 10 MG IV CARDIZEM PUSH ORDERED FOR UNCONTROLLED AFIB WITH RATE 110-150 BPM THIS EVENING DESPITE PRN IV METOPROLOL. GOOD IMPROVEMENT OF HR TO 90S-100S WITH IV CARDIZEM. BRIEF LOCAL PRURITIS AT IV INJECTION SITE OF CARDIZEM IMPROVED WITH PROVIDER-ORDERED BENADRYL 50 MG PO ONCE. PATENT R WRIST IV. PAIN WELL-CONTROLLED WITH MEDICATION PER JUL, AND HEAT PAD. SMALL BM THIS AM ON BSC. PT TRANSFERS INDEPENDENTLY WITH STANDBY ASSIST TO BSC.
[2025-02-26 05:31] LABS: Hematocrit 31.2 % (33.0-51.0); Hemoglobin 9.6 g/dL (11.5-16.0); Mean Corpuscular HGB Conc 30.8 g/dL (31.5-36.5); Mean Corpuscular Volume 77 fL (80-100); NRBC ABSOLUTE 0.00 K/mm3 (0.00-0.02); NRBC Auto 0.0 /100 WBC (0.0-0.2); Platelet Count 182 K/mm3 (150-400); RDW Coefficient Variation 17.8 % (11.7-14.2); RDW Standard Deviation 48.6 fL (35.1-46.3)
[2025-02-26 05:56] LABS: Anion Gap 6.0 mmol/L (3-11); Blood Urea Nitrogen 52.0 mg/dL (8-24); CO2, Blood 25.0 mmol/L (21-32); Calcium, Blood 8.8 mg/dL (8.5-10.1); Chloride, Blood 109.0 mmol/L (98-108); Creatinine, Blood 1.38 mg/dL (0.40-1.00); Glucose, Blood 170.0 mg/dL (70-99); Potassium, Blood 4.3 mmol/L (3.5-5.5); Sodium, Blood 136.0 mmol/L (136-145)
--- NOTE | 2025-02-26 11:21 | NUR ---
PHYSICIAN CONTACT DR. LANDRUM NOTIFIED THAT HR HAS INCREASED TO THE 140-150S. ORDERED FOR PO METOLOROLOL TARTRATE 25MG TO BE GIVEN NOW. AWAITING VERIFICATION FROM PHARMACY
--- NOTE | 2025-02-26 11:32 | NUR ---
HR IN THE 150-170S AFIB RELIGIOUS EDUCATION TEACHER CONFIRMED THAT HR IS RISING UP TO THE 150-170S FROM 130-140S. PT STATES SHE CAN FEEL HER HEART RACING. RN DECIDED TO GIVE IV METOPROLOL OVER PO DOSE FOR IMMEDIATE RELIEF. DR. ALNDRUM NOTIFIED OF EVENTS AND ORDERED TO GIVE THE THE ONE TIME DOSE OF METOPROLOL WELL.
[2025-02-26 11:56] LABS: Influenza A/2009-H1 Not Detected (NOT DETECT); SARS-Cov-2 (COVID-19), BioFire Not Detected (NOT DETECT)
[2025-02-26] MEDS ORDERED: Amiodarone HCl 450 MG in NS 250 ML IV SCH (12:00)
[2025-02-26] MEDS ORDERED: Amiodarone HCl 150 MG in NS 100 ML IV ONE (12:35)
--- NOTE | 2025-02-26 15:29 | NUR ---
TRANSFER TO PCU : PT A&OX4. FOLLOWS COMMANDS AND MAKES NEEDS KNOWN TO STAFF. PT HAS DENIED ANY COMPLAINTS OF CP, PRESSRE OR TIGHTNESS BUT HAS REPORTED SOB THAT IS NOT NEW THIS HOSPITAL STAY. PT HAS BEEN SLEEPING MOST OF THE MORNING AND HAS BEEN AGREEABLE WITH CARE AND MEDS. PTS HR TRENDING UP GRADUALLY OVER THE MORNING AND NOT RESPONDING TO MEDS. SEE PREVIOUS NOTES FOR MEDS GIVEN PRIOR TO TRANSFER TO PCU7. PT TRANSFERED TO PCU 7 AROUND 1230. BEDSIDE REPORT GIVEN TO DEL Waddell RN TO ASSUME CARE OF PT.
--- NOTE | 2025-02-26 18:52 | NUR ---
SHIFT SUMMARY PATIENT ARRIVED TO PCU AT ABOUT 1215. AOX4. O2 SATS >92% ON 2-3L, SBP HAVE BEEN 125-135 AND STABLE. HR HAS BEEN 109-115 IN AFIB WITH RVR. PROVIDER AWARE, MEDICATED PER EMAR. WHEEZING HEARD IN LUNG SOUNDS, PATIENT ADMITS SOB, PROVIDER AWARE, MEDICATED PER EMAR. PATIENT DENIES CHEST PAIN/PRESSURE. PURE WICK IN PLACE DRAINING TO SUCTION. [address] IN [address] ON RIGHT ARM. AMIODARONE CURRENTLY INFUSING IN RIGHT AC IV. PATIENT IS RESTING COMFORTABLLY IN BED IN LOWEST POSITION WITH CALL LIGHT WITH IN REACH.
[2025-02-27] VITALS (7 sets, daily range): BP systolic 125–155; BP diastolic 82–108
--- NOTE | 2025-02-27 06:02 | NUR ---
SHIFT SUMMARY PT IS A&O X4, ABLE TO MAKE NEEDS KNOWN, MOVING ALL EXTREMITIES WITH PURPOSE, OBEYS COMMANDS, CALLS APPROPRIATELY, REPOSITIONING SELF IN BED. CONTINUOUS SPO2, SPO2 GREATER THAN 92% ON BASELINE 2L O2 VIA NC, NO SIGNS OF RESPIRATORY DISTRESS NOTED T/O THIS SHIFT. CONTINUOUS TELE MONITORING, SINUS 100-110 S, PULSES PRESENT T/O, BP STABLE WITH MAP GREATER THAN 65, PT DENIES CHEST P/P T/O THIS SHIFT, AMIODERONE DRIP INFUSING PER ORDERS. BOWEL TONES PRESENT IN ALL 4Q, PT DENIES FEELINGS OF NAUSEA OR CONSTIPATION. PUREWICK IN PLACE CONNECTED TO LOW CONTINUOUS SUCTION, URINE YELLOW IN COLOR. BED LOWEST POSITION, CALL LIGHT IN REACH, AWAITING TO GIVE REPORT TO ONCOMING RN.
--- NOTE | 2025-02-27 09:50 | NUR ---
ASSUMPTION OF CARE ASSUMED CARE OF PATIENT AT 0700 AFTER BEDSIDE SHIFT REPORT. PT WAS ASLEEP, AND WOKE EASILY. SHE WAS AO X4. PATIENT CONTINUES TO BE IN AFIB BUT STABLE. VITALS SIGNS STABLE. O2 SAT >94% ON [address] L NC[address] PURE WICK IN PLACE DRAINING TO SUCTION. AMIODARONE IS INFUSING PER EMAR. PATIENT IS SBB FWW. PATIENT DENIES CHEST PAIN/PRESSURE/SOB. RESTING COMFORTABLLY IN BED IN LOWEST POSITION, CALL LIGHT WITH IN REACH.
--- NOTE | 2025-02-27 18:53 | NUR ---
SHIFT ASSESMENT PROVIDER DC'D IV AMIODARONE, INCREASED METOPROLOL. HR IN AFIB, VITALS SIGNS STABLE. O2 SATS >91% ON 2L. PATIENT AMBULATED WELL A SBA TO BEDSIDE COMMODE. BOTH IV'S REDRESSED. OTHERWISE NO ACUTE CHANGES FROM ASSUMPTION OF CARE. PATIENT HAD SEVERAL BREATHING TREATMENTS AND T/O SHIFT. RESTING COMFORTABLY IN BED IN LOWEST POSITION, CALL LIGHT WITH IN REACH.
[2025-02-28 03:18] VITALS: BP 165/110
[2025-02-28 04:06] VITALS: BP 148/104
[2025-02-28 05:02] LABS: Anion Gap 8.0 mmol/L (3-11); Blood Urea Nitrogen 49.0 mg/dL (8-24); CO2, Blood 22.0 mmol/L (21-32); Calcium, Blood 9.4 mg/dL (8.5-10.1); Chloride, Blood 111.0 mmol/L (98-108); Creatinine, Blood 1.25 mg/dL (0.40-1.00); Glucose, Blood 162.0 mg/dL (70-99); Potassium, Blood 5.0 mmol/L (3.5-5.5); Sodium, Blood 136.0 mmol/L (136-145)
--- NOTE | 2025-02-28 05:22 | NUR ---
ASSUMED CARE OF PT AT 1900. PT AWAKE, ALERT AND ORIENTED X 4. PT ON 2L NC WITH O2>92%. PT DOES GET DYSPNEIC WITH EXERTION. PTS HR REMAINED IN AFIB WITH A RATE OF 90S-120, INCREASE NOTED WITH EXERTION. PUREWICK ON AND IN PLACE. 1 PERSON ASSIST WITH FWW. ALL OTHER VSS. BED IN LOWEST POSITION AND CALL LIGHT WITHIN REACH.
[2025-02-28 07:16] VITALS: BP 155/100
--- NOTE | 2025-02-28 09:19 | NUR ---
am note this rn assumed care at 0700. vital signs stable. tele afib 110s. spo2 >90% on 2l nc. patient is alert and oriented x4. neuro is intact. perrla. patient is anxious at times. patient denies pain, chest pain/pressure. patient reports shortness of breath with activity. patient has purewick in place with yellow urine. patient has bruises throughout and reddness on her bottom that is blanchable. patient right upper lobe clear and middle and lower have dim cracklers. patientleft upper lobe clear and left lower dim. see shift assessment for further detials. md sethi in at 0800 and discussed drawing bnp lab and pending this lab will start lasix. the plan is for patient to get out of bed and monitor heart rate and discussed possible discharge on tuesday. patient agrees to this plan of care. this rn notifed md sethi of bnp and md stated he will order lasix.
[2025-02-28] MEDS ORDERED: Methyl Salicylate/Menth/Camph 57 GM TUBE TOP PRN (13:25)
[2025-02-28 15:34] VITALS: BP 148/86
--- NOTE | 2025-02-28 17:43 | NUR ---
shift summary patient vital signs remain stable. no acute changes this shift. plan remainsup to date
[2025-02-28 20:06] VITALS: BP 143/105
--- NOTE | 2025-02-28 22:35 | NUR ---
TRANSFER TO MED FLOOR CALLED REPORT TO MEDICAL FLOOR RN. VSS. NO C/O CHEST PAIN/PRESSURE. NO C/O SOB. PT AOX4. ABLE TO MAKE ALL NEEDS KNOWN. CALL LIGHT WITHIN REACH AND PT CALLS APPROPRIATELY FOR ASSISTANCE. PT TO TRANSFER TO ROOM 330.
[2025-02-28 22:53] VITALS: BP 134/96
--- NOTE | 2025-03-01 02:14 | NUR ---
TRANSFER SUMMARY RECEIVED REPORT FROM HELEN MOSS IN PCU. PT ARRIVES VIA GURNEY SATURATING >91% ON RA. NO COMPLAINTS OF CHEST PAIN OR SOB. ABLE TO MAKE NEEDS KNOWN. A&OX4. CALL LIGHT WITHIN REACH. ORIENTED TO ROOM. PERSONAL BELONGINGS GIVEN TO PATIENT.
[2025-03-01 04:34] VITALS: BP 138/89
--- NOTE | 2025-03-01 06:01 | NUR ---
SHIFT SUMMARY PT TRANSFERRED FROM PCU. MAINTAINING SPO2 >91% ON RA (BASELINE IS 2L NC PRN). CONTINUES TO BENEFIT FROM BREATHING TREATMENTS WITH RT THIS EVENING. MAINTAINING AFIB WITH RATE IN THE 100S-120S. AFTER TOPROL XL INCREASED TO 100 MG BID. NO FURTHER IV RATE CONTROL REQUIRED THIS EVENING. PAIN WELL CONTROLLED WITH MEDICATING PER JUL. PT DISCUSSES FEELING HOPEFUL TO RETURN TO HER APARTMENT RESIDENCE WHERE SHE DESCRIBES HAVING DAILY HH VISIT 4 HRS/DAY. AMBULATORY W/FWW AND STANDBY ASSIST, PRN 2L NC. A&OX4. IVs IN RAC AND R wrist.
[2025-03-01 07:24] VITALS: BP 150/93
[2025-03-01 11:01] LABS: Anion Gap 8.0 mmol/L (3-11); Blood Urea Nitrogen 70.0 mg/dL (8-24); CO2, Blood 24.0 mmol/L (21-32); Calcium, Blood 9.3 mg/dL (8.5-10.1); Chloride, Blood 106.0 mmol/L (98-108); Creatinine, Blood 1.45 mg/dL (0.40-1.00); Glucose, Blood 123.0 mg/dL (70-99); Potassium, Blood 4.4 mmol/L (3.5-5.5); Sodium, Blood 134.0 mmol/L (136-145)
--- NOTE | 2025-03-01 16:24 | NUR ---
SHIFT SUMMARY: PATIENT A/OX4, PLEASANT AND COOPERATIVE c CARE. PATIENT DENIES CP/PRESSURE, SOB, N/V AND DIZZINESS. PATIENT HAD EPISODE HR IN 120'S-130'S BRIEFLY WHEN USING BSC AND BOUNCH BACK TO 100'S-110 BPM T/O SHIFT. PATIENT MEDICATED X1 FOR "ALL OVER" PAIN PER EMAR c MOD EFFECT. PATIENT USES O2 PRN, ON AUDIO VISUAL TECH. PATIENT EAGER TO GO HOME, DR. LANDRUM IS AWARE AND PLAN TO DISCHARGE TOMORROW. PATIENT AGREED TO STAY ONE MORE NIGHT. PATIENT HAS GOOD APPETITE, PUREWICK IN PLACED FOR URGENCY AND SBA TO BSC. PATIENT RECEIVED SCHEDULED MEDS PER EMAR. VITAL SIGNS REVIEWED. BED IN LOWEST POSITION. CALL LIGHT IN REACH.
[2025-03-01 16:36] VITALS: BP 118/86
[2025-03-01 17:57] VITALS: BP 116/85
--- NOTE | 2025-03-01 18:11 | NUR ---
ROTOR ASSEMBLER NOTIFICATION NOTE: RECEIVE A CALL VIA [employer] FROM [id number] AT 1750'S PATIENT HR SUSTAINING IN 120-130'S. PATIENT REPOSITIONING IN BED AND EATING HER DINNER. PATIENT DENIES CP/PRESSURE, SOB AND DIZZINESS; VITALS TAKEN-SBP 116/85, HR 125 PER ROTOR ASSEMBLER. PATIENT MEDICATED c PRN IV METOPROLOL TARTRATE PER ORDER. PATIENT CURRENTLY RESTING IN BED, WCTM AND REPORT TO ONCOMING NOC RN.
[2025-03-01 20:58] VITALS: BP 112/97
[2025-03-01 23:39] VITALS: BP 99/69
[2025-03-02 04:06] VITALS: BP 128/90
--- NOTE | 2025-03-02 04:37 | NUR ---
SHIFT SUMMARY PATIENT HAS BEEN A&O, ALTHOUGH PATIENT HAS DENIED HAVING DIABETES AND STAFF OFFERING HER FOOD ALTERNATIVES WHEN STAFF HAS OFFERED IT SEVERAL TIMES. ABLE TO ANSWER A&O QUESTIONS CORRECTLY. PATIENT HAS RECEIVED RT TREATMENT AND VEST THERAPY. PATIENT HAS NOT SLEPT MUCH DURING THE SHIFT, HAS REQUIRED SOME PRN MEDS PER [facility] TO HELP WITH PATIENT'S PAIN. CALL LIGHT WITHIN REACH, PATIENT IS ABLE TO MAKE NEEDS KNOWN, BED RAILS X3 UP, BED AT LOWEST POSITION.
[2025-03-02 07:08] VITALS: BP 140/104
[2025-03-02] MEDS ORDERED: FentaNYL Citrate 50 MCG/ML 2 ML Injection ONE (07:16)
[2025-03-02] MEDS ORDERED: FentaNYL Citrate 50 MCG/ML 2 ML Injection IV ONE (07:20)
[2025-03-02 07:30] VITALS: BP 134/97
--- NOTE | 2025-03-02 07:30 | NUR ---
CHEST PAIN PATIENT HIT PAIN MED BUTTON, COMPLAINED OF 5-6/10 PAIN IN CHEST, SOB, ELEVATED BP AND HR (SEE CHART). NOTIFICATION MADE TO DOCTOR, MEDICATED PER [facility] (PAIN STARTED SUBSIDING ), EKG OBTAINED. ONCOMING NURSE TAKEN OVER TO FOLLOW UP. PATIENT IS SPEAKING SENTENCES AND NO SIGN OF DISTRESS AT THIS TIME, CALL LIGHT WITHIN REACH.
--- NOTE | 2025-03-02 07:43 | NUR ---
BEGINNING OF DAY SHIFT NOTE: PER MIHIR, RN SHANA, PATIENT REPORTS CHEST STABBING PAIN AT AROUND 0650'S. HOSPITALIST WAS NOTIFIED. PATIENT WERE GIVEN IV FENTANYL AND METOPROLOL. ECG ORDERED AND DONE. PATIENT CURRENTLY LAYING IN BED, DENIES CP/PRESSURE, VITALS TAKEN SBP-134/97, HR IN THE 90'S STILL AFIB PER NOTITOR TECH. WC PATIENT T/O THE DAY. BED IN LOWEST POSITION. CALL LIGHT IN REACH.
[2025-03-02] MEDS ORDERED: NICO21TP TOP (10:46)
[2025-03-02] MEDS ORDERED: DEXT30SU PO (10:46)
[2025-03-02] MEDS ORDERED: PRED20 PO (10:47)
[2025-03-02] MEDS ORDERED: ALBU90OI INH (10:47)
[2025-03-02] MEDS ORDERED: SPIRIVA RESPIMAT4 G3 INH (10:48)
--- NOTE | 2025-03-02 11:50 | NUR ---
SHIFT/DISCHARGE SUMMARY: PATIENT A/OX4, PLEASANT AND COOPERATIVE c CARE. PATIENT DENIES CP/PRESSURE, SOB, N/V AND DIZZINESS. PATIENT ON TELE, AFIB IN LOW 110'S BPM. PATIENT RECEIVED SCHEDULED MEDS PER EMAR. VITAL SIGNS REVIEWED. PATIENT HAS GOOD APPETITE. PATIENT REQUESTING TO GO HOME SINCE BEGINNING THIS SHIFT. DR. LANDRUM NOTIFIED. PIV DC'D. PATIENT DISCHARGE HOME c [facility]OUGH [facility]. PATIENT EDUCATED ON ADMITTING DX'S OF COPD EXACERBATION, S/S, TX, NEW RX AND TO F/U PCP AT [facility]. PATIENT VERBALIZED UNDERSTANDING AND NO FURTHER QUESTIONS. RX WAS FAXED TO PATIENT PREFERRED [facility] PATIENT AWAITING FOR RIDES SET-UP AT [address] [facility].
--- NOTE | 2025-03-02 13:15 | NUR ---
ADDITIONAL NOTE: THIS RN CAME BACK FROM LUNCH AT 1220. BREAK NURSE RN, [facility] NOTIFIED THIS RN THAT PATIENT CALLED HER BROTHER FOR RIDE D/T NOT ABLE TO WAIT HER TRANSPORT SET-UP AT 1600. PER [facility] PATIENT BROTHER AGREED TO COME OVER AND WAIT AT ER PATIENT ENTRANCE. PATIENT LEFT THE ROOM AT 1205 VIA WC AND LEFT HER DISCHARGE PACKET. THIS RN ATTEMPT TO CALL PATIENT NUMBER AT [phone], BUT GOES TO [facility]. ALSO ATTEMPTED TO CALL PATIENT BROTHERYUMIKO AT [phone], NOBODY ANSWER, BUT ABLE TO LEFT A MESSAGE FOR CALL BACK AT [phone].
--- NOTE | 2025-03-02 14:55 | NUR ---
DISCHARGE PACKET NOTE: THIS RN MET c PATIENT BROTHER-NUVIA AT 1445 IN THE ADMITTING LOBBY TO GIVE THE DISCHARGE INSTRUCTION PACKET. PER NUVIA "I'M NOT SURPRISE THAT SHE LEFT HER DISCHARGE PACKET. I KNOW MY SISTER SHE ALWAYS IN HURRY." NUVIA EDUCATED ON PATIENT NEW RX AND TO REMIND HER TO CALL [facility] ON TUESDAY FOR F/U APPOINTMENT. NUVIA VERBALIZED UNDERSTANDING AND NO FURTHER QUESTIONS.
== END 2025-03-02 12:48 | disposition home health service (06) | DRG 291 ==
LOC: ER 13:49 → ERHOLD 13:50 → PCU 13:50 → MEDS 02-24 15:46 → PCU 02-26 12:28 → MEDS 02-28 22:53
PROVIDERS: Emergency Medicine; Internal Medicine; Nurse Practitioner Acute Care; ADMIT Internal Medicine
DX: I13.0 Hypertensive heart and chronic kidney disease with heart failure and stage 1 through stage 4 chronic kidney disease, or unspecified chronic kidney disease (principal); I50.21 Acute systolic (congestive) heart failure; J96.21 Acute and chronic respiratory failure with hypoxia; J44.1 Chronic obstructive pulmonary disease with (acute) exacerbation; I48.20 Chronic atrial fibrillation, unspecified; E87.4 Mixed disorder of acid-base balance; E78.5 Hyperlipidemia, unspecified; G25.81 Restless legs syndrome; F25.0 Schizoaffective disorder, bipolar type; E11.22 Type 2 diabetes mellitus with diabetic chronic kidney disease; N18.30 Chronic kidney disease, stage 3 unspecified; D63.1 Anemia in chronic kidney disease; F41.9 Anxiety disorder, unspecified; D50.9 Iron deficiency anemia, unspecified; Z86.19 Personal history of other infectious and parasitic diseases; Z87.891 Personal history of nicotine dependence; Z79.01 Long term (current) use of anticoagulants; Z79.84 Long term (current) use of oral hypoglycemic drugs; Z79.891 Long term (current) use of opiate analgesic; Z79.899 Other long term (current) drug therapy; Z88.0 Allergy status to penicillin; Z88.1 Allergy status to other antibiotic agents; Z88.2 Allergy status to sulfonamides; Z88.8 Allergy status to other drugs, medicaments and biological substances; Z91.148 Patient's other noncompliance with medication regimen for other reason
CPT/HCPCS: 0202U; 36415; 70450; 71045; 71260; 73600; 73620; 80048; 80069; 80162; 81001; 81003; 82728; 82803; 82947; 83036; 83540; 83550; 83605; 83735; 83880; 84484; 85025; 85027; 85379; 93005; 93010; 94640; 94660; 94664; 94667; 94668; 94762; 96365-59; 96375-59; 96376; 96376-59; 99285-25; A9270; G0378; J0282; J1750; J1938; J2270; J2919; J3010; J3475; J7050; J7512; Q9967

== ENCOUNTER 2025-03-03 06:44 | Emergency (ER) | payer MEDICARE, OTHER ==
[~2025-03-03] VITALS: Ht 167.6 cm; Wt 69.8 kg
[~2025-03-03 06:44] MED LIST changes: +DEXT30SU PO; +NICO21TP TOP; +PRED20 PO; +SPIRIVA RESPIMAT4 G3 INH
[2025-03-03 07:07] LABS: BASOPHILS ABSOLUTE AUTO 0.12 K/mm3 (0.00-0.23); BASOPHILS PERCENT AUTO 1 % (0-2); EOSINOPHILS ABSOLUTE AUTO 0.09 K/mm3 (0.00-0.68); EOSINOPHILS PERCENT AUTO 1 % (0-6); Hematocrit 40.9 % (33.0-51.0); Hemoglobin 12.6 g/dL (11.5-16.0); IMMATURE GRAN ABSOLUTE AUTO 0.91 K/mm3 (0.00-0.10); IMMATURE GRAN PERCENT AUTO 5 % (0-1); LYMPHOCYTES ABSOLUTE AUTO 2.97 K/mm3 (0.84-5.20); LYMPHOCYTES PERCENT AUTO 16 % (21-46); MONOCYTES ABSOLUTE AUTO 1.41 K/mm3 (0.16-1.47); MONOCYTES PERCENT AUTO 8 % (4-13); Mean Corpuscular HGB Conc 30.8 g/dL (31.5-36.5); Mean Corpuscular Volume 76 fL (80-100); NEUTROPHILS ABSOLUTE AUTO 12.81 K/mm3 (1.96-9.15); NEUTROPHILS PERCENT AUTO 70 % (41-73); NRBC ABSOLUTE 0.03 K/mm3 (0.00-0.02); NRBC Auto 0.2 /100 WBC (0.0-0.2); Platelet Count 272 K/mm3 (150-400); RDW Coefficient Variation 19.9 % (11.7-14.2); RDW Standard Deviation 46.7 fL (35.1-46.3)
[2025-03-03 07:23] LABS: Alanine Aminotransfer (ALT/SGP 27.0 U/L (12-78); Albumin, Blood 3.5 g/dL (3.4-5.0); Albumin/Globulin Ratio 1.2 (0.8-1.8); Anion Gap 11.0 mmol/L (3-11); Aspartate Aminotrans (AST/SGOT 15.0 U/L (12-37); Bilirubin, Total 0.4 mg/dL (0.1-1.0); Blood Urea Nitrogen 75.0 mg/dL (8-24); CO2, Blood 23.0 mmol/L (21-32); Calcium, Blood 8.8 mg/dL (8.5-10.1); Chloride, Blood 104.0 mmol/L (98-108); Creatinine, Blood 1.76 mg/dL (0.40-1.00); Globulin, Blood 2.9 g/dL (2.2-4.0); Glucose, Blood 120.0 mg/dL (70-99); Potassium, Blood 4.1 mmol/L (3.5-5.5); Sodium, Blood 134.0 mmol/L (136-145); Total Protein, Blood 6.4 g/dL (6.4-8.2)
[2025-03-03] MEDS ORDERED: Atropine/Scopalam/Hyoscam/PB 5 ML UDC PO ONE (09:10)
== END 2025-03-03 10:03 | disposition home or self-care (01) ==
LOC: ER 06:44
PROVIDERS: Student in an Organized Health Care Education/Training Program
DX: R07.2 Precordial pain (principal); J44.89 Other specified chronic obstructive pulmonary disease; K21.9 Gastro-esophageal reflux disease without esophagitis; E78.5 Hyperlipidemia, unspecified; E11.9 Type 2 diabetes mellitus without complications; Z87.891 Personal history of nicotine dependence; Z79.52 Long term (current) use of systemic steroids; Z79.899 Other long term (current) drug therapy; Z88.0 Allergy status to penicillin; Z88.1 Allergy status to other antibiotic agents; Z88.8 Allergy status to other drugs, medicaments and biological substances
CPT/HCPCS: 71046; 80053; 83690; 83880; 84484; 85025; 93005; 93010; 99285-25; A9270

== ENCOUNTER 2025-03-24 08:30 | Inpatient (IN) | payer MEDICARE, OTHER ==
[~2025-03-24] VITALS: Ht 167.6 cm; Wt 72.1 kg
[2025-03-24] VITALS (9 sets, daily range): BP systolic 103–150; BP diastolic 56–94
[2025-03-24] MEDS ORDERED: Ipratropium/Albuterol SulF 2.5-0.5MG/3 ML Amp INH ONE (08:40)
[2025-03-24] MEDS ORDERED: Albuterol 2.5 MG/3 ML VIAL INH SCH ×2 (08:40→14:05)
[2025-03-24 08:48] LABS: BASOPHILS ABSOLUTE AUTO 0.03 K/mm3 (0.00-0.23); BASOPHILS PERCENT AUTO 1 % (0-2); EOSINOPHILS ABSOLUTE AUTO 0.13 K/mm3 (0.00-0.68); EOSINOPHILS PERCENT AUTO 3 % (0-6); Hematocrit 41.7 % (33.0-51.0); Hemoglobin 12.5 g/dL (11.5-16.0); IMMATURE GRAN ABSOLUTE AUTO 0.02 K/mm3 (0.00-0.10); IMMATURE GRAN PERCENT AUTO 0 % (0-1); LYMPHOCYTES ABSOLUTE AUTO 1.32 K/mm3 (0.84-5.20); LYMPHOCYTES PERCENT AUTO 26 % (21-46); MONOCYTES ABSOLUTE AUTO 0.43 K/mm3 (0.16-1.47); MONOCYTES PERCENT AUTO 8 % (4-13); Mean Corpuscular HGB Conc 30.0 g/dL (31.5-36.5); Mean Corpuscular Volume 83 fL (80-100); NEUTROPHILS ABSOLUTE AUTO 3.23 K/mm3 (1.96-9.15); NEUTROPHILS PERCENT AUTO 63 % (41-73); NRBC ABSOLUTE 0.00 K/mm3 (0.00-0.02); NRBC Auto 0.0 /100 WBC (0.0-0.2); Platelet Count 131 K/mm3 (150-400); RDW Coefficient Variation 22.8 % (11.7-14.2); RDW Standard Deviation 67.2 fL (35.1-46.3)
[2025-03-24 08:48] LABS: pH Blood Venous 7.27 (7.34-7.37)
[2025-03-24] MEDS ORDERED: Ondansetron HCl 2 MG / ML 2ML Vial IV ONE (09:00)
[2025-03-24] MEDS ORDERED: Diltiazem HCl 5 MG / ML 5ML Vial IV ONE (09:00)
[2025-03-24 09:10] LABS: Alanine Aminotransfer (ALT/SGP 19.0 U/L (12-78); Albumin, Blood 3.4 g/dL (3.4-5.0); Albumin/Globulin Ratio 1.1 (0.8-1.8); Anion Gap 8.0 mmol/L (3-11); Aspartate Aminotrans (AST/SGOT 15.0 U/L (12-37); Bilirubin, Total 0.6 mg/dL (0.1-1.0); Blood Urea Nitrogen 27.0 mg/dL (8-24); CO2, Blood 24.0 mmol/L (21-32); Calcium, Blood 9.3 mg/dL (8.5-10.1); Chloride, Blood 111.0 mmol/L (98-108); Creatinine, Blood 1.02 mg/dL (0.40-1.00); Globulin, Blood 3.2 g/dL (2.2-4.0); Glucose, Blood 110.0 mg/dL (70-99); Magnesium, Blood 2.1 mg/dL (1.6-2.4); Potassium, Blood 4.1 mmol/L (3.5-5.5); Sodium, Blood 139.0 mmol/L (136-145); Total Protein, Blood 6.6 g/dL (6.4-8.2)
[2025-03-24 09:31] LABS: Influenza A, PCR NEGATIVE (NEGATIVE); Influenza B, PCR NEGATIVE (NEGATIVE); Resp Syncytial Virus, PCR NEGATIVE (NEGATIVE); SARS-Cov-2 (COVID-19) PCR, MMC NEGATIVE (NEGATIVE)
[2025-03-24] MEDS ORDERED: Doxycycline Hyclate 100 MG in Dextrose 5% 250 ML IV ONE (09:35)
[2025-03-24 10:01] LABS: Anti-Xa UFH, PHA Monitoring <0.10 IU/mL; Prothrombin Time Results 11.5 Sec (9.7-11.5)
[2025-03-24] MEDS ORDERED: Heparin Sodium,Porcine/0.5 NS 500 ML IV SCH (10:05)
[2025-03-24] MEDS ORDERED: Heparin Sodium 5000 Units/ML 1ML MDV IV ONE (10:05)
[2025-03-24 10:22] LABS: pH Blood Venous 7.29 (7.34-7.37)
[2025-03-24] MEDS ORDERED: FLU VACC TS2025(65UP)/MF59C/PF 45 MCG/0.5 ML SYRINGE IM SCH (10:40)
--- NOTE | 2025-03-24 12:40 | NUR ---
ASSUMPTION OF CARE PATIENT ARRIVED TO UNIT VIA GURNEY FROM ER. SBA TRANSFER FROM [facility] TO HOSPITAL BED. TELE IN PLACE HR 110'S, PATIENT DENIES CHEST PAIN OR PRESSURE, SPO2 >90% ON 3L VIA NC, PATIENT REPORTS SOME SHORTNESS OF BREATH WITH EXERTION. DILTIAZEM GTT AND HEPARIN GTT INFUSING, SEE EMAR FOR MORE DETAILS. DENIES N/V/D OR ABDOMINAL PAIN. PATIENT IS CONTINENT OF URINE. PATIENT IS LYING IN BED, BED IN LOWEST POSITION, CALL LIGHT WITHIN REACH.
[2025-03-24] MEDS ORDERED: Tiotropium Bromide 2.5 MCG/ACT MIST INHAL (10 ACT/4 GM) INH SCH (14:45)
[2025-03-24] MEDS ORDERED: Metoprolol Tartrate 1 MG/ML 5 ML VIAL IV PRN (14:50)
[2025-03-24] MEDS ORDERED: Insulin Human Lispro 100 Units/ML 3ML Syringe SC SCH (16:30)
--- NOTE | 2025-03-24 18:33 | NUR ---
SHIFT SUMMARY PATIENT IS ALERT AND ORIENTED, ABLE TO FOLLOW COMMANDS AND MAKE NEEDS KNOWN. TELE IN PLACE, A FIB 80'S-110'S, DILTIAZEM GTT STOPPED, PO METOPROLOL GIVEN PER PROVIDER ORDER. SPO2 >88% ON 3L VIA NC, PATIENT INTERMITTENTLY REMOVES NC WHEN EATING, PATIENT STATES "I WILL PUT IT BACK ON WHEN I'M READY", PATIENT PROVIDED EDUCATION ON OXYGEN COMPLIANCE. PATIENT DENIES N/V/D, ABDOMEN IS SOFT AND NONTENDER. SBA TO BSC, PATIENT INFORMED ON USE OF CALL LIGHT. PATIENT IS UP IN BED, BED IN LOWEST POSITION, CALL LIGHT WITHIN REACH.
[2025-03-25 03:06] VITALS: BP 134/80
[2025-03-25 04:28] LABS: Anion Gap 12.0 mmol/L (3-11); Blood Urea Nitrogen 42.0 mg/dL (8-24); CO2, Blood 21.0 mmol/L (21-32); Calcium, Blood 8.9 mg/dL (8.5-10.1); Chloride, Blood 108.0 mmol/L (98-108); Creatinine, Blood 1.25 mg/dL (0.40-1.00); Glucose, Blood 206.0 mg/dL (70-99); Potassium, Blood 4.2 mmol/L (3.5-5.5); Sodium, Blood 137.0 mmol/L (136-145)
--- NOTE | 2025-03-25 05:35 | NUR ---
NO ACUTE EVENTS OVERNIGHT. PT WAS REMINDED TO KEEP NASAL CANNULA ON D/T SPO2 DROPPING WITH NASAL CANNULA OFF. PT CALLED APPROPRIATELY. PT ABLE TO USE BSC WITH SBA. BED LOCKED IN LOWEST POSITION. BED ALARM ON. CALL LIGHT WITHIN REACH.
[2025-03-25 07:32] VITALS: BP 141/93
--- NOTE | 2025-03-25 07:34 | NUR ---
ASSUMPTION NOTE: THIS RN TO ASSUME CARE OF WOOD.WOOD EAISLY AROUSABLE, ALERT AND OREITNED X4 & COOOPERATIVE WITH HER CARE. SATTING >92% ON 2 LITERS VIA NASAL CANNULA. WOOD VITALS STABLE, DENIED ANY CHEST PAIN/PRESSURE. NO NASUEA/VOMITTING. WOOD REQUESTED A BATH AFTER BREAKFAST. HAS CALL LIGHT WITHIN REACH,BED IN LOWEST LOCKED POSITION & STATING NOTHING ELSE IS NEEDED AT THIS TIME.
--- NOTE | 2025-03-25 10:30 | NUR ---
Pt is aoX4 baseline O2 use of 2L nasal canula pt is SBA W/FWW Reg diet on tele AFIB, possible dc 03/26/2025 continuing steroid therapy. Took all peresonal belongings and was wheeled upstairs by the JOINTER OPERATOR.
--- NOTE | 2025-03-25 13:15 | NUR ---
TRANSFER NOTE PT A&OX4. PT HAS HX OF SCHIZO. THIS RN GOT REPORT FROM TEST PILOT. PT ADMITTED DUE TO COPD EXAC. PT CAME TO FLOOR AT 1023. PT REQUESTED RT, THIS RN NOTIFIED RT. PT ORIENTED TO CALL LIGHT/UNIT/FALL PRECAUTIONS. PT REPORTS URINARY URGENCY. PT USES FWW TO BSC. RT CAME FOR TREATMENT. PT ON TELE, TELE NOTIFIED ABOUT TRANSFER. TELE REPORTS PT AFIB AT 109 BPM. PT ACHS. INSULIN GIVEN AT LUNCH. PT ON 2L OF O2 VIA N/C. PT WEARS 2L AT BASELINE. PT IN BED, BED IN LOWEST POSITION, LOCKED, CALL LIGHT IN REACH.
[2025-03-25] MEDS ORDERED: Guaifenesin/Dextromethorphan Syrup 5 ML UDC PO PRN (15:10)
[2025-03-25 15:24] VITALS: BP 151/79
--- NOTE | 2025-03-25 16:47 | NUR ---
NOTE PT A&OX4. PT REPORTS NO CHEST PAIN. PT REPORTS PAIN AT NECK. PAIN MANAGED PER EMAR. PT WORKED WITH PHYSICAL THERAPY TODAY. PT COMPLAINT OF COUGH, REQUESTED COUGH SYRUP FOR COUGH/THROAT. THIS RN NOTIFIED DR. LANDRUM OF REQUEST, DR. LANDRUM GAVE VERBAL ORDER FOR ROBITUSSIN. PT IN BED, BED IN LOWEST POSITION, LOCKED. CALL LIGHT IN REACH. NO ACUTE CHANGES SINCE TRANSFER.
[2025-03-25 20:11] VITALS: BP 147/80
[2025-03-26] VITALS (7 sets, daily range): BP systolic 133–155; BP diastolic 80–101
--- NOTE | 2025-03-26 05:47 | NUR ---
SHIFT SUMMARY 69 YR F TRANSFERED TO MEDICAL FLOOR FROM PCU ON 03/25/25. FULL CODE. NO ACUTE CHANGES THIS SHIFT. PT IS REQUESTING FREQUENT BREATHING TX'S FROM RT. SHE HAS BEEN MEDICATED FOR PAIN 3 X THIS SHIFT. SHE WAS ALSO GIVEN ROBITUSSIN AT HER REQUEST. SHE STATES THAT IT HURTS HER CHEST WHEN SHE COUGHS. SHE APPEARS TO HAVE RESTED COMFORTABLY OFF AND ON THROUGHOUT THE NIGHT. CALLS APPROPRIATELY FOR ASSISTANCE. BED IN LOW POSITION WITH CAll light in reach.
[2025-03-26 07:05] LABS: Anion Gap 9.0 mmol/L (3-11); Blood Urea Nitrogen 56.0 mg/dL (8-24); CO2, Blood 22.0 mmol/L (21-32); Calcium, Blood 8.8 mg/dL (8.5-10.1); Chloride, Blood 111.0 mmol/L (98-108); Creatinine, Blood 1.3 mg/dL (0.40-1.00); Glucose, Blood 192.0 mg/dL (70-99); Potassium, Blood 4.2 mmol/L (3.5-5.5); Sodium, Blood 138.0 mmol/L (136-145)
--- NOTE | 2025-03-26 18:44 | NUR ---
SHIFT SUMMARY PT A&OX4, VSS, AFIB 100-115, ONE PERIOD OF AFIB UP TO 140 DURING COUGHING FIT. MEDICATED PER EMAR. PT WALKED IN HALLS WITH PHYSICAL THERAPY, STAYED ON 2L O2. SBA TO BSC. ABLE TO MAKE NEEDS KNOWN, CALL LIGHT IN REACH.
[2025-03-27 03:25] VITALS: BP 149/93
--- NOTE | 2025-03-27 05:27 | NUR ---
SHIFT SUMMARY 69 YR F ADMITTED ON 03/24/25. FULL CODE. NO ACUTE CHANGES THIS SHIFT. PT SLEPT OFF AND ON THROUGHOUT THIS SHIFT. SHE WOKE UP A FEW TIMES YELLING OUT, BUT WENT BACK TO SLEEP. SHE IS STILL REQUIRING REGULAR BREATHING TX'S AND IS BEING MEDICATED FOR PAIN. SHE HAS BEEN PLEASANT AND COOPERATIVE THIS SHIFT. NO NEW CHANGES TO REPORT. BED IN LOW POSITION AND CALL LIGHT IN REACH.
[2025-03-27 05:46] LABS: Anion Gap 9.0 mmol/L (3-11); Blood Urea Nitrogen 56.0 mg/dL (8-24); CO2, Blood 22.0 mmol/L (21-32); Calcium, Blood 9.0 mg/dL (8.5-10.1); Chloride, Blood 110.0 mmol/L (98-108); Creatinine, Blood 1.26 mg/dL (0.40-1.00); Glucose, Blood 194.0 mg/dL (70-99); Potassium, Blood 4.7 mmol/L (3.5-5.5); Sodium, Blood 136.0 mmol/L (136-145)
[2025-03-27 07:49] VITALS: BP 152/111
[2025-03-27 11:26] VITALS: BP 152/114
[2025-03-27] MEDS ORDERED: Q-Tussin100 MG/5 M PO (13:30)
[2025-03-27] MEDS ORDERED: Nicoderm Cq1 EAC1 TOP (13:30)
[2025-03-27] MEDS ORDERED: DOCU100 PO (13:30)
[2025-03-27] MEDS ORDERED: PRED20 PO (13:31)
[2025-03-27 15:26] VITALS: BP 125/104
--- NOTE | 2025-03-27 15:32 | NUR ---
PATIENTS BROTHER CALLED AND STATED HE WAS OUTSIDE TO WAREHOUSE CLERK PATIENT. DID NOT WANT TO COME INSIDE. REVIEWED DISCHARGE INSTRUCTIONS WITH PATIENT INCLUDING FOLLOW UP APPOINTMENT AND RETURNING TO ER IF SYMPTOMS GET WORSE. PATIENT VERBALLY AGREED.
== END 2025-03-27 16:01 | disposition home health service (06) | DRG 189 ==
LOC: ER 08:30 → PCU 10:34 → MEDS 10:34 → PCU 12:19 → MEDS 03-25 10:16
PROVIDERS: Student in an Organized Health Care Education/Training Program; ADMIT Internal Medicine
PROC: 5A09357 Assistance with Respiratory Ventilation, Less than 24 Consecutive Hours, Continuous Positive Airway Pressure (ICD-10-PCS; principal; 2025-03-24)
PROC: 3E03329 Introduction of Other Anti-infective into Peripheral Vein, Percutaneous Approach (ICD-10-PCS; 2025-03-24)
PROC: 3E02340 Introduction of Influenza Vaccine into Muscle, Percutaneous Approach (ICD-10-PCS; 2025-03-24)
DX: J96.21 Acute and chronic respiratory failure with hypoxia (principal); I50.23 Acute on chronic systolic (congestive) heart failure; J44.1 Chronic obstructive pulmonary disease with (acute) exacerbation; I48.20 Chronic atrial fibrillation, unspecified; F25.9 Schizoaffective disorder, unspecified; G25.81 Restless legs syndrome; I50.9 Heart failure, unspecified; F41.9 Anxiety disorder, unspecified; D63.1 Anemia in chronic kidney disease; F31.9 Bipolar disorder, unspecified; J96.22 Acute and chronic respiratory failure with hypercapnia; E11.22 Type 2 diabetes mellitus with diabetic chronic kidney disease; N18.30 Chronic kidney disease, stage 3 unspecified; Z23 Encounter for immunization; Z79.01 Long term (current) use of anticoagulants; Z88.0 Allergy status to penicillin; Z88.8 Allergy status to other drugs, medicaments and biological substances; Z88.1 Allergy status to other antibiotic agents; Z88.2 Allergy status to sulfonamides; Z79.899 Other long term (current) drug therapy; Z79.891 Long term (current) use of opiate analgesic; Z79.52 Long term (current) use of systemic steroids; Z79.51 Long term (current) use of inhaled steroids; Z87.891 Personal history of nicotine dependence
CPT/HCPCS: 36415; 71045; 80048; 80053; 82803; 82947; 83735; 83880; 85025; 85520; 85610; 85730; 87637; 93005; 93010; 94640; 94660; 94664; 94760; 94762; 96365; 96367; 96375; 97116; 97162; 97530; 99285-25; A6590; A9270; J0456; J1644; J1938; J2405; J2919; J7050; J7060

== ENCOUNTER 2025-04-06 07:35 | Emergency (ER) | payer MEDICARE, OTHER ==
[~2025-04-06] VITALS: Ht 167.6 cm; Wt 65.8 kg
[~2025-04-06 07:35] MED LIST changes: +DOCU100 PO; +Nicoderm Cq1 EAC1 TOP
[2025-04-06] MEDS ORDERED: Ipratropium/Albuterol SulF 2.5-0.5MG/3 ML Amp INH ONE (10:00)
== END 2025-04-06 12:12 | disposition home or self-care (01) ==
LOC: ER 07:35
DX: S01.81XA Laceration without foreign body of other part of head, initial encounter (principal); S80.211A Abrasion, right knee, initial encounter; J44.89 Other specified chronic obstructive pulmonary disease; K21.9 Gastro-esophageal reflux disease without esophagitis; E78.5 Hyperlipidemia, unspecified; E11.22 Type 2 diabetes mellitus with diabetic chronic kidney disease; N18.9 Chronic kidney disease, unspecified; W06.XXXA Fall from bed, initial encounter; Z87.891 Personal history of nicotine dependence; Z79.52 Long term (current) use of systemic steroids; Z79.899 Other long term (current) drug therapy; Z88.0 Allergy status to penicillin; Z88.1 Allergy status to other antibiotic agents; Z88.8 Allergy status to other drugs, medicaments and biological substances
CPT/HCPCS: 12013; 70450; 72125; 90471; 90715; 93005; 93010; 99284-25; A9270